=== PATIENT | male | born 1935 | race Caucasian/White ===

== ENCOUNTER 2019-11-27 23:32 | Inpatient (IN) ==
[2019-11-28 00:13] LABS: Basophils # 0.1 10*3/uL (0.0-0.2); Basophils % 0.5 % (0.0-0.8); Eosinophils # 0.1 10*3/uL (0.0-0.87); Eosinophils % 0.9 % (0.00-10.9); Hematocrit 31.9 VOL% (42.0-52.0); Hemoglobin 9.8 GM/DL (14.0-18.0); Immature Granulocytes % 0.6 %; Immature Granulocytes Absolute 0.07 #; Lymphocytes # 2.4 10*3/uL (1.4-4.0); Lymphocytes % 18.6 % (21.2-54.2); Mean Corpuscular HGB Conc 30.7 GM/DL (32-36); Mean Corpuscular Volume 86.4 FL (87-102); Mean Platelet Volume 9.2 FL (9.6-12.0); Monocytes % 9.9 % (1.7-12.7); Neutrophils % 69.5 % (38.7-73.9); Platelet Count 363 T/CUMM (130-400); Red Blood Count 3.69 MC/CUMM (3.8-5.5); White Blood Count 12.7 T/CUMM (4-12)
[2019-11-28 00:18] LABS: INR 1.3; PT Patient Result 13.6 SECS (9.8-11.9); Partial Thromboplastin Time 27.1 SECS (23.9-33.8)
[2019-11-28 00:28] LABS: Thyroid Stimulating Hormone 2.04 uIU/ml (0.358-3.74)
[2019-11-28 00:28] LABS: Bacteria,Urine Occasional /HPF (Few); Bilirubin,Urine Negative (Negative); Blood, Urine Negative (Negative); Glucose,Urine (UA) Negative (Negative); Hyaline Casts,Urine 25 /LPF (0-3); Ketones,Urine Negative (Negative); Mucus,Urine Occasional /LPF (Occasional); Nitrite,Urine Negative (Negative); Protein,Urine Negative; RBC,Urine 1 /HPF (0-4); Squamous Epithelial Cell,Urine Occasional /HPF (0-10); Urine Appearance CLEAR (Clear); Urine Specific Gravity 1.023 (1.001-1.035); WBC,Urine 2 /HPF (0-6)
[2019-11-28 00:36] LABS: Alanine Aminotransferase 24 U/L (16-61); Albumin 2.8 G/DL (3.4-5.0); Alkaline Phosphatase 88 U/L (45-117); Aspartate Amino Transferase 22 U/L (0-37); Blood Urea Nitrogen 15 MG/DL (7-18); Calcium 8.8 MG/DL (8.5-10.1); Estimated Glom Filtration Rate 80 ML/MIN; Glucose 128 MG/DL (74-106); Osmolality,Calculated 275.8 MOS/KG (273-304); Total Protein 6.8 G/DL (6.4-8.3); Troponin I 0.079 NG/ML (0.00-0.045)
[2019-11-28 00:36] LABS: Urine Color Yellow (Yellow)
[2019-11-28] MEDS ORDERED: SODIUM CHLORIDE 0.9% 1,000 ML IV STA (00:36)
[2019-11-28] MEDS ORDERED: cefTRIAXone 1,000 MG in SODIUM CHLORIDE 0.9% 100 ML IV STA (00:36)
[2019-11-28] MEDS ORDERED: POTASSIUM CHLORIDE 20 MEQ TABLET PO STA (01:20)
[2019-11-28] MEDS ORDERED: diphenhydrAMINE CAP 25 MG CAPSULE PO PRN (02:04)
[2019-11-28] MEDS ORDERED: guaiFENesin/DM ER 600-30 MG TABLET PO PRN (02:04)
[2019-11-28] MEDS ORDERED: GLUCAGON 1 MG VIAL IM PRN (02:04)
[2019-11-28] MEDS ORDERED: ACETAMINOPHEN 325 MG TABLET PO PRN (02:04)
[2019-11-28] MEDS ORDERED: ONDANSETRON 4 MG/2 ML VIAL IV PRN (02:04)
[2019-11-28] MEDS ORDERED: DEXTROSE 50% 25 GM/50 ML VIAL IV PRN (02:04)
[2019-11-28] MEDS ORDERED: ALUMINUM/MAGNES/SIMETH MAX STR 30 ML UDCUP PO PRN (02:04)
[2019-11-28] MEDS ORDERED: MORPHINE 4 MG/1 ML VIAL IV PRN (02:04)
[2019-11-28] MEDS ORDERED: NICOTINE 21 MG/24 HR PATCH TRANSDERM PRN (02:04)
[2019-11-28 05:00] LABS: Calcium 8.2 MG/DL (8.5-10.1); Osmolality,Calculated 278.5 MOS/KG (273-304)
[2019-11-28] MEDS ORDERED: POTASSIUM CHLORIDE 20 MEQ TABLET PO ONE (05:54)
[2019-11-28] MEDS: POTASSIUM CHLORIDE RIDER 10 MEQ in PREMIX 1 EACH IV PRN ×4 (06:27→14:45)
[2019-11-28] MEDS ORDERED: MAGNESIUM SULF RIDER 2 GM in PREMIX 1 EACH IV PRN (07:04)
[2019-11-28] MEDS: ALBUTEROL/IPRATROPIUM 3 ML NEB RESP TX SCH ×3 (07:17→22:25)
[2019-11-28] MEDS: AZITHROMYCIN INJ 500 MG in SODIUM CHLORIDE 0.9% 250 ML IV SCH (09:49)
[2019-11-28] MEDS: POTASSIUM CHLORIDE 20 MEQ TABLET PO SCH ×2 (09:49→21:13)
[2019-11-28] MEDS: ASPIRIN 325 MG TABLET PO SCH (09:49)
[2019-11-28] MEDS ORDERED: ALBUTEROL/IPRATROPIUM 3 ML NEB RESP TX ONE (12:36)
[2019-11-28] MEDS: methylPREDNISolone SOD SUC 40 MG/1 ML VIAL IV SCH ×2 (14:34→21:15)
[2019-11-28] MEDS: APIXABAN 5 MG TABLET PO SCH ×2 (14:38→21:14)
[2019-11-28] MEDS: FUROSEMIDE 40 MG/4 ML VIAL IV SCH (18:37)
[2019-11-28] MEDS: PANTOPRAZOLE 20 MG TABLET PO SCH (21:14)
[2019-11-28] MEDS: OMEGA 3 ACID ETHYL ESTERS 1 GM CAPSULE PO SCH (21:14)
[2019-11-28] MEDS: carvediloL 3.125 MG TABLET PO SCH (21:14)
[2019-11-29] MEDS: cefTRIAXone 1,000 MG in SYRINGE 1 EACH IV SCH ×2 (00:39→22:39)
[2019-11-29] MEDS: ALBUTEROL/IPRATROPIUM 3 ML NEB RESP TX SCH ×4 (02:57→19:16)
[2019-11-29] MEDS: methylPREDNISolone SOD SUC 40 MG/1 ML VIAL IV SCH ×3 (06:14→21:21)
[2019-11-29] MEDS: AZITHROMYCIN INJ 500 MG in SODIUM CHLORIDE 0.9% 250 ML IV SCH (06:14)
[2019-11-29] MEDS ORDERED: ALBUTEROL/IPRATROPIUM 3 ML NEB RESP TX ONE ×3 (07:00→18:33)
[2019-11-29 07:35] LABS: Basophils % 0.1 % (0.0-0.8); Hematocrit 34.6 VOL% (42.0-52.0); Hemoglobin 10.3 GM/DL (14.0-18.0); Immature Granulocytes % 0.8 %; Lymphocytes # 1.8 10*3/uL (1.4-4.0); Lymphocytes % 13.9 % (21.2-54.2); Mean Corpuscular HGB Conc 29.8 GM/DL (32-36); Mean Corpuscular Volume 89.9 FL (87-102); Mean Platelet Volume 9.6 FL (9.6-12.0); Monocytes % 6.3 % (1.7-12.7); Neutrophils % 78.9 % (38.7-73.9); Platelet Count 393 T/CUMM (130-400); Red Blood Count 3.85 MC/CUMM (3.8-5.5); Red Cell Distribution Width 17.2 % (9.3-17.3); White Blood Count 13.1 T/CUMM (4-12)
[2019-11-29 07:41] LABS: Calcium 9.1 MG/DL (8.5-10.1); Osmolality,Calculated 280.7 MOS/KG (273-304)
[2019-11-29] MEDS ORDERED: lisinopriL 20 MG TABLET PO SCH (09:00)
[2019-11-29] MEDS ORDERED: FUROSEMIDE 40 MG TABLET PO SCH (09:00)
[2019-11-29] MEDS: FUROSEMIDE 40 MG/4 ML VIAL IV SCH ×2 (09:48→15:44)
[2019-11-29] MEDS: FEBUXOSTAT 80 MG TABLET PO SCH (09:48)
[2019-11-29] MEDS: MULTIVITAMIN (CENTRUM) TABLET PO SCH (09:49)
[2019-11-29] MEDS: carvediloL 3.125 MG TABLET PO SCH ×2 (09:49→21:21)
[2019-11-29] MEDS: OMEGA 3 ACID ETHYL ESTERS 1 GM CAPSULE PO SCH ×2 (09:49→21:21)
[2019-11-29] MEDS: FLUTICASONE 50 MCG NASAL SPRAY 16 GM BOTTLE BOTH NARES SCH (09:50)
[2019-11-29] MEDS: LEVOTHYROXINE 50 MCG TABLET PO SCH (09:50)
[2019-11-29] MEDS: FERROUS SULFATE 325 MG TABLET PO SCH (09:50)
[2019-11-29] MEDS: CETIRIZINE 10 MG TABLET PO SCH (09:50)
[2019-11-29] MEDS: ASPIRIN 325 MG TABLET PO SCH (09:50)
[2019-11-29] MEDS: PANTOPRAZOLE 20 MG TABLET PO SCH ×2 (09:50→21:21)
[2019-11-29] MEDS: APIXABAN 5 MG TABLET PO SCH ×2 (09:50→21:21)
[2019-11-29] MEDS: hydrALAZINE 25 MG TABLET PO SCH (21:21)
[2019-11-30] MEDS: ALBUTEROL/IPRATROPIUM 3 ML NEB RESP TX SCH ×3 (01:46→19:13)
[2019-11-30] MEDS: methylPREDNISolone SOD SUC 40 MG/1 ML VIAL IV SCH ×3 (06:25→21:10)
[2019-11-30] MEDS: AZITHROMYCIN INJ 500 MG in SODIUM CHLORIDE 0.9% 250 ML IV SCH (06:26)
[2019-11-30 07:41] LABS: Basophils % 0.1 % (0.0-0.8); Hematocrit 34.1 VOL% (42.0-52.0); Hemoglobin 10.2 GM/DL (14.0-18.0); Immature Granulocytes % 0.6 %; Immature Granulocytes Absolute 0.08 #; Lymphocytes # 1.4 10*3/uL (1.4-4.0); Lymphocytes % 10.9 % (21.2-54.2); Mean Corpuscular HGB Conc 29.9 GM/DL (32-36); Mean Corpuscular Volume 89.7 FL (87-102); Mean Platelet Volume 9.6 FL (9.6-12.0); Monocytes % 6.3 % (1.7-12.7); NRBC # 0.03 10*3/uL; Neutrophils % 82.1 % (38.7-73.9); Platelet Count 371 T/CUMM (130-400); Red Cell Distribution Width 17.6 % (9.3-17.3); White Blood Count 12.9 T/CUMM (4-12)
[2019-11-30 08:00] LABS: Albumin 2.7 G/DL (3.4-5.0); Bilirubin,Total 0.5 MG/DL (0.2-1.0); Calcium 8.9 MG/DL (8.5-10.1); Osmolality,Calculated 289.5 MOS/KG (273-304); Total Protein 6.6 G/DL (6.4-8.3)
[2019-11-30] MEDS: FUROSEMIDE 40 MG/4 ML VIAL IV SCH ×2 (10:04→15:11)
[2019-11-30] MEDS: FEBUXOSTAT 80 MG TABLET PO SCH (10:09)
[2019-11-30] MEDS: FERROUS SULFATE 325 MG TABLET PO SCH (10:09)
[2019-11-30] MEDS: LEVOTHYROXINE 50 MCG TABLET PO SCH (10:09)
[2019-11-30] MEDS: carvediloL 3.125 MG TABLET PO SCH ×2 (10:10→21:10)
[2019-11-30] MEDS: APIXABAN 5 MG TABLET PO SCH ×2 (10:10→21:10)
[2019-11-30] MEDS: OMEGA 3 ACID ETHYL ESTERS 1 GM CAPSULE PO SCH ×2 (10:10→21:10)
[2019-11-30] MEDS: MULTIVITAMIN (CENTRUM) TABLET PO SCH (10:10)
[2019-11-30] MEDS: PANTOPRAZOLE 20 MG TABLET PO SCH ×2 (10:10→21:10)
[2019-11-30] MEDS: CETIRIZINE 10 MG TABLET PO SCH (10:10)
[2019-11-30] MEDS: hydrALAZINE 25 MG TABLET PO SCH ×2 (10:10→21:10)
[2019-11-30] MEDS: FLUTICASONE 50 MCG NASAL SPRAY 16 GM BOTTLE BOTH NARES SCH (10:11)
[2019-11-30] MEDS: ASPIRIN 325 MG TABLET PO SCH (10:53)
[2019-12-01] MEDS: ALBUTEROL/IPRATROPIUM 3 ML NEB RESP TX SCH ×6 (00:23→19:28)
[2019-12-01] MEDS: cefTRIAXone 1,000 MG in SYRINGE 1 EACH IV SCH (00:36)
[2019-12-01 05:56] LABS: Basophils % 0.1 % (0.0-0.8); Hematocrit 33.7 VOL% (42.0-52.0); Hemoglobin 9.9 GM/DL (14.0-18.0); Immature Granulocytes % 0.6 %; Immature Granulocytes Absolute 0.08 #; Lymphocytes # 0.8 10*3/uL (1.4-4.0); Lymphocytes % 6.6 % (21.2-54.2); Mean Corpuscular HGB Conc 29.4 GM/DL (32-36); Mean Platelet Volume 9.8 FL (9.6-12.0); Monocytes % 4.7 % (1.7-12.7); NRBC # 0.06 10*3/uL; Platelet Count 377 T/CUMM (130-400); Red Blood Count 3.83 MC/CUMM (3.8-5.5); Red Cell Distribution Width 17.3 % (9.3-17.3); White Blood Count 12.4 T/CUMM (4-12)
[2019-12-01] MEDS: methylPREDNISolone SOD SUC 40 MG/1 ML VIAL IV SCH ×2 (05:59→13:34)
[2019-12-01] MEDS: AZITHROMYCIN INJ 500 MG in SODIUM CHLORIDE 0.9% 250 ML IV SCH (06:00)
[2019-12-01 06:24] LABS: Calcium 8.7 MG/DL (8.5-10.1); Osmolality,Calculated 291.7 MOS/KG (273-304)
[2019-12-01 06:35] LABS: Albumin 2.8 G/DL (3.4-5.0); Bilirubin,Total 1.1 MG/DL (0.2-1.0); Calcium 9.1 MG/DL (8.5-10.1); Osmolality,Calculated 287.8 MOS/KG (273-304); Total Protein 6.6 G/DL (6.4-8.3)
[2019-12-01] MEDS: FUROSEMIDE 40 MG/4 ML VIAL IV SCH (08:17)
[2019-12-01] MEDS: MULTIVITAMIN (CENTRUM) TABLET PO SCH (09:08)
[2019-12-01] MEDS: carvediloL 3.125 MG TABLET PO SCH ×2 (09:09→22:30)
[2019-12-01] MEDS: OMEGA 3 ACID ETHYL ESTERS 1 GM CAPSULE PO SCH ×2 (09:09→22:25)
[2019-12-01] MEDS: CETIRIZINE 10 MG TABLET PO SCH (09:09)
[2019-12-01] MEDS: LEVOTHYROXINE 50 MCG TABLET PO SCH (09:09)
[2019-12-01] MEDS: PANTOPRAZOLE 20 MG TABLET PO SCH ×2 (09:10→22:26)
[2019-12-01] MEDS: APIXABAN 5 MG TABLET PO SCH ×2 (09:10→22:26)
[2019-12-01] MEDS: hydrALAZINE 25 MG TABLET PO SCH ×2 (09:10→22:25)
[2019-12-01] MEDS: FERROUS SULFATE 325 MG TABLET PO SCH (09:10)
[2019-12-01] MEDS: FEBUXOSTAT 80 MG TABLET PO SCH (09:11)
[2019-12-01] MEDS: FLUTICASONE 50 MCG NASAL SPRAY 16 GM BOTTLE BOTH NARES SCH (09:12)
[2019-12-01] MEDS: FUROSEMIDE 40 MG TABLET PO SCH (15:30)
[2019-12-02] MEDS: ALBUTEROL/IPRATROPIUM 3 ML NEB RESP TX SCH ×4 (00:10→19:52)
[2019-12-02] MEDS: cefTRIAXone 1,000 MG in SYRINGE 1 EACH IV SCH ×3 (01:49→22:34)
[2019-12-02] MEDS: methylPREDNISolone SOD SUC 40 MG/1 ML VIAL IV SCH (01:51)
[2019-12-02 05:48] LABS: Hemoglobin 10.1 GM/DL (14.0-18.0); Immature Granulocytes % 1.1 %; Immature Granulocytes Absolute 0.09 #; Lymphocytes # 0.5 10*3/uL (1.4-4.0); Lymphocytes % 5.9 % (21.2-54.2); Mean Corpuscular HGB Conc 30.6 GM/DL (32-36); Mean Corpuscular Volume 87.1 FL (87-102); Mean Platelet Volume 9.9 FL (9.6-12.0); Monocytes % 6.5 % (1.7-12.7); NRBC # 0.09 10*3/uL; Neutrophils % 86.5 % (38.7-73.9); Platelet Count 322 T/CUMM (130-400); Red Blood Count 3.79 MC/CUMM (3.8-5.5); Red Cell Distribution Width 17.2 % (9.3-17.3); White Blood Count 8.3 T/CUMM (4-12)
[2019-12-02 06:06] LABS: Calcium 8.9 MG/DL (8.5-10.1); Osmolality,Calculated 288.8 MOS/KG (273-304)
[2019-12-02 06:12] LABS: Albumin 2.8 G/DL (3.4-5.0); Bilirubin,Total 1.1 MG/DL (0.2-1.0); Calcium 8.8 MG/DL (8.5-10.1); Osmolality,Calculated 291.7 MOS/KG (273-304); Total Protein 6.4 G/DL (6.4-8.3)
[2019-12-02] MEDS ORDERED: POTASSIUM CHLORIDE RIDER 10 MEQ in PREMIX 1 EACH IV PRN (08:08)
[2019-12-02] MEDS ORDERED: MAGNESIUM SULF RIDER 2 GM in PREMIX 1 EACH IV PRN (08:08)
[2019-12-02] MEDS: OMEGA 3 ACID ETHYL ESTERS 1 GM CAPSULE PO SCH ×2 (08:47→20:35)
[2019-12-02] MEDS: hydrALAZINE 25 MG TABLET PO SCH ×2 (08:48→20:36)
[2019-12-02] MEDS: FERROUS SULFATE 325 MG TABLET PO SCH (08:48)
[2019-12-02] MEDS: FEBUXOSTAT 80 MG TABLET PO SCH (08:48)
[2019-12-02] MEDS: APIXABAN 5 MG TABLET PO SCH ×2 (08:49→20:35)
[2019-12-02] MEDS: carvediloL 3.125 MG TABLET PO SCH ×2 (08:49→20:36)
[2019-12-02] MEDS: LEVOTHYROXINE 50 MCG TABLET PO SCH (08:49)
[2019-12-02] MEDS: MULTIVITAMIN (CENTRUM) TABLET PO SCH (08:49)
[2019-12-02] MEDS: PANTOPRAZOLE 20 MG TABLET PO SCH ×2 (08:49→20:35)
[2019-12-02] MEDS: FUROSEMIDE 40 MG TABLET PO SCH ×2 (08:50→15:07)
[2019-12-02] MEDS: CETIRIZINE 10 MG TABLET PO SCH (08:50)
[2019-12-02] MEDS: POTASSIUM CHLORIDE 20 MEQ TABLET PO PRN (08:53)
[2019-12-02] MEDS: FLUTICASONE 50 MCG NASAL SPRAY 16 GM BOTTLE BOTH NARES SCH (09:52)
[2019-12-02] MEDS: POLYETHYLENE GLYCOL POWDER 17 GM PACK PO SCH (12:22)
[2019-12-03] MEDS: ALBUTEROL/IPRATROPIUM 3 ML NEB RESP TX SCH ×4 (01:10→19:43)
[2019-12-03] MEDS ORDERED: DIAZEPAM 5 MG TABLET PO ONE (06:00)
[2019-12-03] MEDS ORDERED: diphenhydrAMINE CAP 25 MG CAPSULE PO ONE (06:00)
[2019-12-03 06:35] LABS: Basophils % 0.1 % (0.0-0.8); Hematocrit 34.8 VOL% (42.0-52.0); Hemoglobin 10.5 GM/DL (14.0-18.0); Immature Granulocytes % 0.7 %; Immature Granulocytes Absolute 0.07 #; Lymphocytes # 0.8 10*3/uL (1.4-4.0); Lymphocytes % 7.7 % (21.2-54.2); Mean Corpuscular HGB Conc 30.2 GM/DL (32-36); Mean Corpuscular Volume 89.9 FL (87-102); Mean Platelet Volume 9.8 FL (9.6-12.0); Monocytes % 9.7 % (1.7-12.7); NRBC # 0.07 10*3/uL; Neutrophils % 81.8 % (38.7-73.9); Platelet Count 336 T/CUMM (130-400); Red Blood Count 3.87 MC/CUMM (3.8-5.5); Red Cell Distribution Width 17.9 % (9.3-17.3)
[2019-12-03 06:51] LABS: Albumin 2.9 G/DL (3.4-5.0); Bilirubin,Total 1.3 MG/DL (0.2-1.0); Osmolality,Calculated 286.8 MOS/KG (273-304); Total Protein 6.5 G/DL (6.4-8.3)
[2019-12-03] MEDS: APIXABAN 5 MG TABLET PO SCH ×2 (10:18→21:38)
[2019-12-03] MEDS: FUROSEMIDE 40 MG TABLET PO SCH ×2 (10:18→17:05)
[2019-12-03] MEDS: PANTOPRAZOLE 20 MG TABLET PO SCH ×2 (10:18→21:38)
[2019-12-03] MEDS: carvediloL 3.125 MG TABLET PO SCH ×2 (10:18→21:38)
[2019-12-03] MEDS: predniSONE 20 MG TABLET PO SCH (10:18)
[2019-12-03] MEDS: MULTIVITAMIN (CENTRUM) TABLET PO SCH (10:19)
[2019-12-03] MEDS: OMEGA 3 ACID ETHYL ESTERS 1 GM CAPSULE PO SCH ×2 (10:19→21:38)
[2019-12-03] MEDS: hydrALAZINE 25 MG TABLET PO SCH ×2 (10:19→21:38)
[2019-12-03] MEDS: POLYETHYLENE GLYCOL POWDER 17 GM PACK PO SCH (10:19)
[2019-12-03] MEDS: FLUTICASONE 50 MCG NASAL SPRAY 16 GM BOTTLE BOTH NARES SCH (10:19)
[2019-12-03] MEDS: FERROUS SULFATE 325 MG TABLET PO SCH (10:19)
[2019-12-03] MEDS: LEVOTHYROXINE 50 MCG TABLET PO SCH (10:20)
[2019-12-03] MEDS: CETIRIZINE 10 MG TABLET PO SCH (10:20)
[2019-12-03] MEDS: FEBUXOSTAT 80 MG TABLET PO SCH (10:20)
[2019-12-03] MEDS: SODIUM CHLORIDE 0.45% 1,000 ML IV SCH ×2 (10:25→15:02)
[2019-12-03] MEDS ORDERED: HEPARIN/NACL 0.9% 2 UNITS/ML 1,000 ML IV ONE (10:39)
[2019-12-03] MEDS ORDERED: LIDOCAINE 1% 20 ML VIAL ONE (10:39)
[2019-12-03] MEDS ORDERED: HYDROmorphone 2 MG/1 ML VIAL ONE (12:45)
[2019-12-03] MEDS ORDERED: MIDAZOLAM 2 MG/2 ML VIAL ONE (12:45)
[2019-12-03] MEDS ORDERED: ZALEPLON 5 MG CAPSULE PO PRN (14:09)
[2019-12-04] MEDS: cefTRIAXone 1,000 MG in SYRINGE 1 EACH IV SCH ×2 (00:07→22:30)
[2019-12-04] MEDS: SODIUM CHLORIDE 0.45% 1,000 ML IV SCH ×4 (00:08→21:40)
[2019-12-04] MEDS: ALBUTEROL/IPRATROPIUM 3 ML NEB RESP TX SCH ×4 (01:36→19:10)
[2019-12-04 05:42] LABS: Basophils % 0.1 % (0.0-0.8); Eosinophils % 0.1 % (0.00-10.9); Hematocrit 34.2 VOL% (42.0-52.0); Hemoglobin 10.3 GM/DL (14.0-18.0); Immature Granulocytes % 0.6 %; Immature Granulocytes Absolute 0.06 #; Lymphocytes # 0.9 10*3/uL (1.4-4.0); Lymphocytes % 8.5 % (21.2-54.2); Mean Corpuscular HGB Conc 30.1 GM/DL (32-36); Mean Corpuscular Volume 89.3 FL (87-102); Mean Platelet Volume 9.9 FL (9.6-12.0); Monocytes % 8.7 % (1.7-12.7); NRBC # 0.02 10*3/uL; Platelet Count 354 T/CUMM (130-400); Red Blood Count 3.83 MC/CUMM (3.8-5.5); Red Cell Distribution Width 17.8 % (9.3-17.3); White Blood Count 10.4 T/CUMM (4-12)
[2019-12-04 06:01] LABS: Calcium 8.7 MG/DL (8.5-10.1); Osmolality,Calculated 280.1 MOS/KG (273-304); Osmolality,Calculated 283.8 MOS/KG (273-304)
[2019-12-04 06:03] LABS: Albumin 2.9 G/DL (3.4-5.0); Bilirubin,Total 0.8 MG/DL (0.2-1.0); Calcium 8.7 MG/DL (8.5-10.1); Osmolality,Calculated 280.1 MOS/KG (273-304); Total Protein 6.3 G/DL (6.4-8.3)
[2019-12-04] MEDS: FERROUS SULFATE 325 MG TABLET PO SCH (09:28)
[2019-12-04] MEDS: predniSONE 20 MG TABLET PO SCH (09:28)
[2019-12-04] MEDS: APIXABAN 5 MG TABLET PO SCH (09:28)
[2019-12-04] MEDS: hydrALAZINE 25 MG TABLET PO SCH ×2 (09:28→21:37)
[2019-12-04] MEDS: OMEGA 3 ACID ETHYL ESTERS 1 GM CAPSULE PO SCH ×2 (09:28→21:37)
[2019-12-04] MEDS: CETIRIZINE 10 MG TABLET PO SCH (09:28)
[2019-12-04] MEDS: FUROSEMIDE 40 MG TABLET PO SCH ×2 (09:29→16:37)
[2019-12-04] MEDS: carvediloL 3.125 MG TABLET PO SCH ×2 (09:29→21:37)
[2019-12-04] MEDS: FEBUXOSTAT 80 MG TABLET PO SCH (09:29)
[2019-12-04] MEDS: MULTIVITAMIN (CENTRUM) TABLET PO SCH (09:29)
[2019-12-04] MEDS: LEVOTHYROXINE 50 MCG TABLET PO SCH (09:29)
[2019-12-04] MEDS: PANTOPRAZOLE 20 MG TABLET PO SCH ×2 (09:30→21:37)
[2019-12-04] MEDS: POLYETHYLENE GLYCOL POWDER 17 GM PACK PO SCH (09:30)
[2019-12-04] MEDS: FLUTICASONE 50 MCG NASAL SPRAY 16 GM BOTTLE BOTH NARES SCH (09:30)
[2019-12-04] MEDS: POTASSIUM CHLORIDE 20 MEQ TABLET PO PRN (09:30)
[2019-12-04] MEDS ORDERED: ENOXAPARIN 80 MG/0.8 ML SYRINGE SUBCUT SCH ×2 (12:00→16:00)
[2019-12-05] MEDS: ALBUTEROL/IPRATROPIUM 3 ML NEB RESP TX SCH ×4 (02:06→20:44)
[2019-12-05 04:51] LABS: Basophils % 0.1 % (0.0-0.8); Eosinophils % 0.2 % (0.00-10.9); Hematocrit 34.2 VOL% (42.0-52.0); Hemoglobin 10.2 GM/DL (14.0-18.0); Immature Granulocytes % 0.7 %; Immature Granulocytes Absolute 0.08 #; Lymphocytes # 0.9 10*3/uL (1.4-4.0); Lymphocytes % 7.5 % (21.2-54.2); Mean Corpuscular HGB Conc 29.8 GM/DL (32-36); Mean Corpuscular Volume 90.5 FL (87-102); Mean Platelet Volume 9.8 FL (9.6-12.0); Monocytes % 6.8 % (1.7-12.7); Neutrophils % 84.7 % (38.7-73.9); Platelet Count 371 T/CUMM (130-400); Red Blood Count 3.78 MC/CUMM (3.8-5.5); Red Cell Distribution Width 17.9 % (9.3-17.3); White Blood Count 11.7 T/CUMM (4-12)
[2019-12-05 05:15] LABS: Calcium 8.7 MG/DL (8.5-10.1); Osmolality,Calculated 277.1 MOS/KG (273-304); Total Protein 6.4 G/DL (6.4-8.3)
[2019-12-05] MEDS: SODIUM CHLORIDE 0.45% 1,000 ML IV SCH ×2 (05:36→14:34)
[2019-12-05] MEDS: FEBUXOSTAT 80 MG TABLET PO SCH (09:00)
[2019-12-05] MEDS: OMEGA 3 ACID ETHYL ESTERS 1 GM CAPSULE PO SCH ×2 (09:00→20:32)
[2019-12-05] MEDS: FUROSEMIDE 40 MG TABLET PO SCH ×2 (09:01→15:34)
[2019-12-05] MEDS: MULTIVITAMIN (CENTRUM) TABLET PO SCH (09:01)
[2019-12-05] MEDS: carvediloL 3.125 MG TABLET PO SCH ×2 (09:01→20:32)
[2019-12-05] MEDS: LEVOTHYROXINE 50 MCG TABLET PO SCH (09:01)
[2019-12-05] MEDS: FERROUS SULFATE 325 MG TABLET PO SCH (09:01)
[2019-12-05] MEDS: PANTOPRAZOLE 20 MG TABLET PO SCH ×2 (09:02→20:32)
[2019-12-05] MEDS: CETIRIZINE 10 MG TABLET PO SCH (09:02)
[2019-12-05] MEDS: hydrALAZINE 25 MG TABLET PO SCH ×2 (09:02→20:32)
[2019-12-05] MEDS: predniSONE 20 MG TABLET PO SCH (09:02)
[2019-12-05] MEDS: FLUTICASONE 50 MCG NASAL SPRAY 16 GM BOTTLE BOTH NARES SCH (09:03)
[2019-12-05] MEDS: POLYETHYLENE GLYCOL POWDER 17 GM PACK PO SCH (09:03)
[2019-12-06] MEDS: ALBUTEROL/IPRATROPIUM 3 ML NEB RESP TX SCH ×4 (01:35→19:15)
[2019-12-06 05:11] LABS: Calcium 8.7 MG/DL (8.5-10.1); Osmolality,Calculated 273.2 MOS/KG (273-304)
[2019-12-06] MEDS: SODIUM CHLORIDE 0.45% 1,000 ML IV SCH ×2 (07:06→07:07)
[2019-12-06] MEDS ORDERED: ALBUTEROL 2.5 MG/3 ML NEB RESP TX PRN (08:39)
[2019-12-06] MEDS: OMEGA 3 ACID ETHYL ESTERS 1 GM CAPSULE PO SCH ×2 (08:41→21:07)
[2019-12-06] MEDS: FEBUXOSTAT 80 MG TABLET PO SCH (08:41)
[2019-12-06] MEDS: hydrALAZINE 25 MG TABLET PO SCH (08:42)
[2019-12-06] MEDS: carvediloL 3.125 MG TABLET PO SCH (08:42)
[2019-12-06] MEDS: CETIRIZINE 10 MG TABLET PO SCH (08:42)
[2019-12-06] MEDS: FERROUS SULFATE 325 MG TABLET PO SCH (08:42)
[2019-12-06] MEDS: FUROSEMIDE 40 MG TABLET PO SCH ×2 (08:43→15:31)
[2019-12-06] MEDS: predniSONE 10 MG TABLET PO SCH (08:43)
[2019-12-06] MEDS: MULTIVITAMIN (CENTRUM) TABLET PO SCH (08:43)
[2019-12-06] MEDS: PANTOPRAZOLE 20 MG TABLET PO SCH ×2 (08:43→21:07)
[2019-12-06] MEDS: LEVOTHYROXINE 50 MCG TABLET PO SCH (08:44)
[2019-12-06] MEDS: POLYETHYLENE GLYCOL POWDER 17 GM PACK PO SCH (08:45)
[2019-12-06] MEDS: FLUTICASONE 50 MCG NASAL SPRAY 16 GM BOTTLE BOTH NARES SCH (08:46)
[2019-12-06] MEDS: POTASSIUM CHLORIDE 20 MEQ TABLET PO PRN ×2 (08:50→14:03)
[2019-12-06 13:07] LABS: ABG Base Excess 6.7 MMOL/L (-2.5-2.5); ABG HCO3 30.5 MMOL/L (20-26); ABG PCO2 34.5 MM HG (35-48); ABG PH 7.538 (7.35-7.45); ABG TCO2 26.1 MMOL/L (23-27)
[2019-12-07] MEDS: ALBUTEROL/IPRATROPIUM 3 ML NEB RESP TX SCH ×4 (00:49→19:11)
[2019-12-07] MEDS: carvediloL 3.125 MG TABLET PO SCH ×3 (01:36→21:42)
[2019-12-07] MEDS ORDERED: ENOXAPARIN 80 MG/0.8 ML SYRINGE SUBCUT ONE (02:12)
[2019-12-07] MEDS: hydrALAZINE 25 MG TABLET PO SCH ×2 (02:38→09:32)
[2019-12-07 03:11] LABS: Albumin 3.6 G/DL (3.4-5.0); Bilirubin,Total 1.4 MG/DL (0.2-1.0); Calcium 9.5 MG/DL (8.5-10.1); Osmolality,Calculated 271.5 MOS/KG (273-304); Total Protein 7.8 G/DL (6.4-8.3)
[2019-12-07 03:17] LABS: Basophils % 0.2 % (0.0-0.8); Eosinophils # 0.2 10*3/uL (0.0-0.87); Hemoglobin 13.4 GM/DL (14.0-18.0); Immature Granulocytes % 1.2 %; Immature Granulocytes Absolute 0.21 #; Lymphocytes # 0.6 10*3/uL (1.4-4.0); Lymphocytes % 3.2 % (21.2-54.2); Mean Corpuscular HGB Conc 30.5 GM/DL (32-36); Mean Corpuscular Volume 89.1 FL (87-102); Mean Platelet Volume 10.3 FL (9.6-12.0); Monocytes % 4.2 % (1.7-12.7); Neutrophils % 90.2 % (38.7-73.9); Platelet Count 318 T/CUMM (130-400); Red Blood Count 4.94 MC/CUMM (3.8-5.5); Red Cell Distribution Width 18.4 % (9.3-17.3); White Blood Count 17.2 T/CUMM (4-12)
[2019-12-07] MEDS: PIPERACILLIN/TAZOBACTAM 3,375 MG in SODIUM CHLORIDE 0.9% 100 ML IV SCH ×3 (04:51→21:43)
[2019-12-07 06:11] LABS: Basophils % 0.2 % (0.0-0.8); Eosinophils # 0.1 10*3/uL (0.0-0.87); Eosinophils % 0.7 % (0.00-10.9); Hematocrit 40.7 VOL% (42.0-52.0); Hemoglobin 12.7 GM/DL (14.0-18.0); Immature Granulocytes % 0.8 %; Immature Granulocytes Absolute 0.11 #; Lymphocytes # 0.5 10*3/uL (1.4-4.0); Lymphocytes % 3.6 % (21.2-54.2); Mean Corpuscular HGB Conc 31.2 GM/DL (32-36); Mean Corpuscular Volume 87.2 FL (87-102); Mean Platelet Volume 10.2 FL (9.6-12.0); Monocytes % 4.6 % (1.7-12.7); Neutrophils % 90.1 % (38.7-73.9); Platelet Count 337 T/CUMM (130-400); Red Blood Count 4.67 MC/CUMM (3.8-5.5); Red Cell Distribution Width 18.4 % (9.3-17.3); White Blood Count 13.2 T/CUMM (4-12)
[2019-12-07 06:27] LABS: Calcium 9.3 MG/DL (8.5-10.1); Osmolality,Calculated 273.2 MOS/KG (273-304)
[2019-12-07 06:32] LABS: Albumin 3.2 G/DL (3.4-5.0); Bilirubin,Total 1.5 MG/DL (0.2-1.0); Osmolality,Calculated 273.2 MOS/KG (273-304); Total Protein 6.7 G/DL (6.4-8.3)
[2019-12-07 06:45] LABS: Lymphocytes 3 % (20-55); Platelet Estimate Normal; Segmented Neutrophils 95 % (50-85); Total Cells Counted 100
[2019-12-07 06:46] LABS: Hypochromasia Slight; Microcytosis Slight; Polychromasia Few
[2019-12-07 06:47] LABS: Ovalocytes Few
[2019-12-07] MEDS ORDERED: SODIUM CHLORIDE 0.9% 1,000 ML IV SCH (07:30)
[2019-12-07 08:01] LABS: Bilirubin,Urine Negative (Negative); Blood, Urine Small mg/dL (Negative); Glucose,Urine (UA) Negative (Negative); Hyaline Casts,Urine 1 /LPF (0-3); Ketones,Urine Negative (Negative); Mucus,Urine Occasional /LPF (Occasional); Nitrite,Urine Negative (Negative); Protein,Urine Negative; Urine Appearance CLEAR (Clear); Urine Color Yellow (Yellow); Urine Specific Gravity 1.014 (1.001-1.035); Urine Urobilinogen < 2.0 EU/DL (0.2-1.0); WBC,Urine 1 /HPF (0-6)
[2019-12-07] MEDS ORDERED: ENOXAPARIN 80 MG/0.8 ML SYRINGE SUBCUT SCH (09:00)
[2019-12-07] MEDS ORDERED: CHLORHEXIDINE 4% SOLN 118 ML BOTTLE TOP SCH (09:00)
[2019-12-07 09:02] LABS: ABG Base Excess 6.3 MMOL/L (-2.5-2.5); ABG HCO3 30.1 MMOL/L (20-26); ABG Oxygen Saturation 97.3 % (95-100); ABG PCO2 39.5 MM HG (35-48); ABG PH 7.489 (7.35-7.45); ABG PO2 87.9 MM HG (80-95); ABG TCO2 26.5 MMOL/L (23-27)
[2019-12-07] MEDS: OMEGA 3 ACID ETHYL ESTERS 1 GM CAPSULE PO SCH ×2 (09:23→21:42)
[2019-12-07] MEDS: FEBUXOSTAT 80 MG TABLET PO SCH (09:25)
[2019-12-07] MEDS: FERROUS SULFATE 325 MG TABLET PO SCH (09:25)
[2019-12-07] MEDS: FUROSEMIDE 40 MG TABLET PO SCH ×2 (09:26→16:30)
[2019-12-07] MEDS: predniSONE 10 MG TABLET PO SCH (09:27)
[2019-12-07] MEDS: LEVOTHYROXINE 50 MCG TABLET PO SCH (09:28)
[2019-12-07] MEDS: MULTIVITAMIN (CENTRUM) TABLET PO SCH (09:28)
[2019-12-07] MEDS: PANTOPRAZOLE 20 MG TABLET PO SCH ×2 (09:28→21:42)
[2019-12-07] MEDS: CETIRIZINE 10 MG TABLET PO SCH (09:28)
[2019-12-07] MEDS: FLUTICASONE 50 MCG NASAL SPRAY 16 GM BOTTLE BOTH NARES SCH (09:30)
[2019-12-07] MEDS: CHLORHEXIDINE 0.12% ORAL RINSE 60 ML BOTTLE SWISH/SPIT SCH ×2 (09:30→21:44)
[2019-12-07] MEDS: POLYETHYLENE GLYCOL POWDER 17 GM PACK PO SCH (09:32)
[2019-12-07 11:54] LABS: Band Neutrophils 3 % (0-10); Hypochromasia 2+; Lymphocytes 4 % (20-55); Ovalocytes Few; Platelet Estimate Normal; Polychromasia Slight; Segmented Neutrophils 88 % (50-85); Target Cells Few; Total Cells Counted 100
[2019-12-07] MEDS: CHLORHEXIDINE 4% SOLN 118 ML BOTTLE TOP SCH (14:25)
[2019-12-08] MEDS: ALBUTEROL/IPRATROPIUM 3 ML NEB RESP TX SCH ×2 (00:13→07:00)
[2019-12-08] MEDS: CHLORHEXIDINE 4% SOLN 118 ML BOTTLE TOP SCH ×3 (00:58→09:00)
[2019-12-08] MEDS: hydrALAZINE 25 MG TABLET PO SCH ×2 (00:58→09:00)
[2019-12-08] MEDS: PIPERACILLIN/TAZOBACTAM 3,375 MG in SODIUM CHLORIDE 0.9% 100 ML IV SCH ×3 (03:39→17:45)
[2019-12-08] MEDS ORDERED: PAPAVERINE 60 MG/2 ML VIAL ONE (04:24)
[2019-12-08] MEDS ORDERED: VANCOMYCIN 500 MG VIAL ONE (04:25)
[2019-12-08] MEDS ORDERED: VANCOMYCIN 1,000 MG VIAL ONE (04:25)
[2019-12-08] MEDS ORDERED: CEFUROXIME INJ 1,500 MG in SYRINGE 1 EACH IV ONE (05:00)
[2019-12-08] MEDS ORDERED: LIDOCAINE 2% 5 ML VIAL ONE ×2 (05:35→13:00)
[2019-12-08] MEDS ORDERED: HEPARIN/NACL 0.9% 2 UNITS/ML 500 ML IV ONE (05:35)
[2019-12-08] MEDS ORDERED: CALCIUM CHLORIDE 1,000 MG/10 ML VIAL IV ONE ×2 (05:35→14:20)
[2019-12-08] MEDS ORDERED: SUFentanil 250 MCG/5 ML AMP ONE (05:35)
[2019-12-08] MEDS ORDERED: LACTATED RINGERS 1,000 ML IV ONE (05:36)
[2019-12-08] MEDS ORDERED: PHENYLEPHRINE 10 MG/1 ML VIAL IV ONE (05:36)
[2019-12-08] MEDS ORDERED: ePHEDrine 50 MG/ML VIAL ONE (05:36)
[2019-12-08] MEDS ORDERED: AMINOCAPROIC ACID 5,000 MG/20 ML VIAL ONE (05:36)
[2019-12-08] MEDS ORDERED: NITROGLYCERIN DRIP 50 MG/250 ML BOTTLE IV ONE (05:36)
[2019-12-08] MEDS ORDERED: SODIUM CHLORIDE 0.9% 1,000 ML IV ONE ×2 (05:36→14:21)
[2019-12-08] MEDS ORDERED: MIDAZOLAM 10 MG/2 ML VIAL ONE (05:36)
[2019-12-08] MEDS ORDERED: ETOMIDATE 40 MG/20 ML VIAL IV ONE (05:36)
[2019-12-08] MEDS ORDERED: VECURONIUM 10 MG VIAL IV ONE (05:37)
[2019-12-08] MEDS: carvediloL 3.125 MG TABLET PO SCH ×2 (05:59→09:00)
[2019-12-08 06:11] LABS: Basophils % 0.1 % (0.0-0.8); Eosinophils # 0.1 10*3/uL (0.0-0.87); Eosinophils % 0.9 % (0.00-10.9); Hematocrit 40.8 VOL% (42.0-52.0); Hemoglobin 12.5 GM/DL (14.0-18.0); Immature Granulocytes % 0.6 %; Immature Granulocytes Absolute 0.07 #; Lymphocytes # 0.8 10*3/uL (1.4-4.0); Lymphocytes % 6.9 % (21.2-54.2); Mean Corpuscular HGB Conc 30.6 GM/DL (32-36); Mean Corpuscular Volume 87.2 FL (87-102); Mean Platelet Volume 9.7 FL (9.6-12.0); Monocytes % 5.8 % (1.7-12.7); Neutrophils % 85.7 % (38.7-73.9); Platelet Count 282 T/CUMM (130-400); Red Blood Count 4.68 MC/CUMM (3.8-5.5); Red Cell Distribution Width 18.2 % (9.3-17.3); White Blood Count 10.9 T/CUMM (4-12)
[2019-12-08 06:26] LABS: Calcium 8.7 MG/DL (8.5-10.1)
[2019-12-08 07:38] LABS: ABG Base Excess 3.9 MMOL/L (-2.5-2.5); ABG PCO2 35.9 MM HG (35-48); ABG PH 7.488 (7.35-7.45); ABG TCO2 24.3 MMOL/L (23-27); Glucose Heart Surgery 91 MG/DL (74-106); Hematocrit Heart Surgery 34.1 PERCENT (42-52); Hemoglobin Heart Surgery 11.1 G/DL (14.0-18.0); Ionized Calcium Arterial 1.12 MMOL/L (1.21-1.46); PCO2 Patient Temp Arterial 35.9 MMHG; PH Patient Temp Arterial 7.488; Patient Temperature 37 CELCIUS; Potassium Heart/CVR 3.1 MMOL/L (3.5-5.1); Sodium Heart/CVR 137 MMOL/L (135-145)
[2019-12-08 07:57] LABS: Amorphous Crystals,Urine Occasional /HPF (Few); Bilirubin,Urine Negative (Negative); Blood, Urine Small mg/dL (Negative); Glucose,Urine (UA) Negative (Negative); Ketones,Urine Negative (Negative); Nitrite,Urine Negative (Negative); Protein,Urine 30 MG/DL; RBC,Urine <1 /HPF (0-4); Urine Appearance CLEAR (Clear); Urine Color Yellow (Yellow); Urine Urobilinogen < 2.0 EU/DL (0.2-1.0); WBC,Urine <1 /HPF (0-6)
[2019-12-08] MEDS: FUROSEMIDE 40 MG TABLET PO SCH (08:00)
[2019-12-08 08:55] LABS: Hematocrit Heart Surgery 25.1 PERCENT (42-52); Hemoglobin Heart Surgery 8.1 G/DL (14.0-18.0); PCO2 Patient Temp Venous 30.6 MM HG; PH Patient Temp Venous 7.551; PO2 Patient Temp Venous 36.3 MM HG; Potassium Heart/CVR 3.1 MMOL/L (3.5-5.1); VBG Base Excess 4.7 MEQ/L (0-4); VBG HCO3 28.4 MEQ/L (24-28); VBG Oxygen Saturation 78.5 %; VBG PCO2 33.8 MMHG (41-51); VBG PH 7.521; VBG PO2 41.8 MMHG (17-40)
[2019-12-08] MEDS: FLUTICASONE 50 MCG NASAL SPRAY 16 GM BOTTLE BOTH NARES SCH (09:00)
[2019-12-08] MEDS: OMEGA 3 ACID ETHYL ESTERS 1 GM CAPSULE PO SCH (09:00)
[2019-12-08] MEDS: POLYETHYLENE GLYCOL POWDER 17 GM PACK PO SCH (09:00)
[2019-12-08] MEDS: MULTIVITAMIN (CENTRUM) TABLET PO SCH (09:00)
[2019-12-08] MEDS: FEBUXOSTAT 80 MG TABLET PO SCH (09:00)
[2019-12-08] MEDS: CHLORHEXIDINE 0.12% ORAL RINSE 60 ML BOTTLE SWISH/SPIT SCH ×2 (09:00→20:31)
[2019-12-08] MEDS: CETIRIZINE 10 MG TABLET PO SCH (09:00)
[2019-12-08] MEDS: FERROUS SULFATE 325 MG TABLET PO SCH (09:00)
[2019-12-08] MEDS: LEVOTHYROXINE 50 MCG TABLET PO SCH (09:00)
[2019-12-08] MEDS: predniSONE 10 MG TABLET PO SCH (09:00)
[2019-12-08] MEDS: PANTOPRAZOLE 20 MG TABLET PO SCH (09:00)
[2019-12-08] MEDS ORDERED: NITROPRUSSIDE 50 MG/2 ML VIAL ONE (09:08)
[2019-12-08] MEDS ORDERED: SODIUM BICARBONATE 50 MEQ/50 ML VIAL IV ONE ×6 (09:08→16:21)
[2019-12-08] MEDS ORDERED: POTASSIUM CHLORIDE RIDER 100 ML IV ONE (09:08)
[2019-12-08] MEDS ORDERED: CALCIUM CHLORIDE 1,000 MG/10 ML SYRINGE IV ONE (09:09)
[2019-12-08] MEDS ORDERED: PHENYLEPHRINE DRIP 40 MG/250 ML PREMIX IV ONE (09:09)
[2019-12-08 09:25] LABS: Hematocrit Heart Surgery 24.9 PERCENT (42-52); PH Patient Temp Venous 7.596; PO2 Patient Temp Venous 36.9 MM HG; Potassium Heart/CVR 3.3 MMOL/L (3.5-5.1); VBG Base Excess 4.9 MEQ/L (0-4); VBG HCO3 28.6 MEQ/L (24-28); VBG Oxygen Saturation 84.2 %; VBG PCO2 31.2 MMHG (41-51); VBG PH 7.549; VBG PO2 45.4 MMHG (17-40)
[2019-12-08 09:56] LABS: Hematocrit Heart Surgery 26.5 PERCENT (42-52); Hemoglobin Heart Surgery 8.5 G/DL (14.0-18.0); PCO2 Patient Temp Venous 25.9 MM HG; PH Patient Temp Venous 7.602; PO2 Patient Temp Venous 34.7 MM HG; Potassium Heart/CVR 3.3 MMOL/L (3.5-5.1); VBG Base Excess 4.4 MEQ/L (0-4); VBG HCO3 28.1 MEQ/L (24-28); VBG Oxygen Saturation 81.6 %; VBG PH 7.555; VBG PO2 42.8 MMHG (17-40)
[2019-12-08 10:26] LABS: Hematocrit Heart Surgery 25.3 PERCENT (42-52); Hemoglobin Heart Surgery 8.1 G/DL (14.0-18.0); PCO2 Patient Temp Venous 25.6 MM HG; PH Patient Temp Venous 7.585; PO2 Patient Temp Venous 38.7 MM HG; VBG HCO3 26.9 MEQ/L (24-28); VBG Oxygen Saturation 86.3 %; VBG PCO2 29.6 MMHG (41-51); VBG PH 7.538; VBG PO2 47.6 MMHG (17-40)
[2019-12-08 10:59] LABS: Hematocrit Heart Surgery 23.6 PERCENT (42-52); Hemoglobin Heart Surgery 7.6 G/DL (14.0-18.0); PCO2 Patient Temp Venous 30.1 MM HG; PH Patient Temp Venous 7.55; Potassium Heart/CVR 4.5 MMOL/L (3.5-5.1); VBG Base Excess 4.1 MEQ/L (0-4); VBG HCO3 27.6 MEQ/L (24-28); VBG Oxygen Saturation 63.8 %; VBG PCO2 30.1 MMHG (41-51); VBG PH 7.55
[2019-12-08] MEDS ORDERED: THROMBIN TOPICAL (RECOMBINANT) 5,000 UNIT VIAL TOP ONE (11:36)
[2019-12-08 11:37] LABS: Hemoglobin Heart Surgery 7.7 G/DL (14.0-18.0); PCO2 Patient Temp Venous 33.5 MM HG; PH Patient Temp Venous 7.489; PO2 Patient Temp Venous 35.2 MM HG; VBG Base Excess 2.2 MEQ/L (0-4); VBG HCO3 26.1 MEQ/L (24-28); VBG Oxygen Saturation 69.4 %; VBG PCO2 33.5 MMHG (41-51); VBG PH 7.489; VBG PO2 35.2 MMHG (17-40)
[2019-12-08 12:10] LABS: Hematocrit Heart Surgery 22.5 PERCENT (42-52); Hemoglobin Heart Surgery 7.2 G/DL (14.0-18.0); PCO2 Patient Temp Venous 30.5 MM HG; PH Patient Temp Venous 7.512; PO2 Patient Temp Venous 28.8 MM HG; VBG Base Excess 1.7 MEQ/L (0-4); VBG HCO3 25.4 MEQ/L (24-28); VBG Oxygen Saturation 55.8 %; VBG PCO2 30.5 MMHG (41-51); VBG PH 7.512; VBG PO2 28.8 MMHG (17-40)
[2019-12-08 12:41] LABS: ABG Base Excess -3.8 MMOL/L (-2.5-2.5); ABG HCO3 18.9 MMOL/L (20-26); ABG Oxygen Saturation 99.1 % (95-100); ABG PCO2 25.7 MM HG (35-48); ABG PH 7.484 (7.35-7.45); ABG PO2 446.3 MM HG (80-95); ABG TCO2 19.7 MMOL/L (23-27); Glucose Heart Surgery 308 MG/DL (74-106); Hemoglobin Heart Surgery 8.3 G/DL (14.0-18.0); Ionized Calcium Arterial 0.72 MMOL/L (1.21-1.46); PCO2 Patient Temp Arterial 25.7 MMHG; PH Patient Temp Arterial 7.484; PO2 Patient Temp Arterial 446.3 MM HG; Patient Temperature 37 CELCIUS; Potassium Heart/CVR 3.9 MMOL/L (3.5-5.1); Sodium Heart/CVR 130 MMOL/L (135-145)
[2019-12-08] MEDS ORDERED: VECURONIUM 10 MG VIAL IV PRN ×2 (12:44)
[2019-12-08] MEDS ORDERED: INSULIN REGULAR 100 UNIT/ML IV ONE (12:44)
[2019-12-08] MEDS ORDERED: DEXTROSE 50% 25 GM/50 ML VIAL IV PRN (12:44)
[2019-12-08] MEDS ORDERED: ONDANSETRON 4 MG/2 ML VIAL IV PRN (12:44)
[2019-12-08] MEDS ORDERED: POTASSIUM CHLORIDE RIDER 10 MEQ in PREMIX 1 EACH IV PRN (12:44)
[2019-12-08] MEDS ORDERED: MAGNESIUM SULF RIDER 4 GM in PREMIX 1 EACH IV PRN (12:44)
[2019-12-08] MEDS ORDERED: MORPHINE 10 MG/1 ML VIAL IV PRN (12:44)
[2019-12-08] MEDS ORDERED: INSULIN REGULAR 100 UNIT/ML IV PRN (12:44)
[2019-12-08] MEDS ORDERED: PHENYLEPHRINE DRIP 40 MG/250 ML PREMIX IV PRN (12:44)
[2019-12-08] MEDS ORDERED: MIDAZOLAM 10 MG/2 ML VIAL IV PRN (12:44)
[2019-12-08] MEDS ORDERED: NITROPRUSSIDE 100 MG in DEXTROSE 5% 250 ML IV PRN (12:44)
[2019-12-08] MEDS ORDERED: CHLORHEXIDINE 4% SOLN 118 ML BOTTLE TOP PRN (12:44)
[2019-12-08] MEDS ORDERED: MIDAZOLAM 2 MG/2 ML VIAL IV PRN (12:44)
[2019-12-08] MEDS ORDERED: MAGNESIUM SULF RIDER 2 GM in PREMIX 1 EACH IV PRN (12:44)
[2019-12-08] MEDS ORDERED: INSULIN REGULAR DRIP 100 ML IV SCH (12:44)
[2019-12-08] MEDS ORDERED: CALCIUM CHLORIDE 1,000 MG/10 ML SYRINGE IV PRN (12:44)
[2019-12-08] MEDS ORDERED: ACETAMINOPHEN 650 MG SUPP RECTAL PRN (12:44)
[2019-12-08] MEDS ORDERED: MANNITOL 100 GM/500 ML BAG IV ONE (13:00)
[2019-12-08] MEDS ORDERED: MAGNESIUM SULFATE 5 GM/10 ML VIAL IV ONE (13:01)
[2019-12-08] MEDS ORDERED: ALBUMIN 25% 25 GM/100 ML VIAL IV ONE (13:01)
[2019-12-08] MEDS ORDERED: HEPARIN 10,000 UNIT/10 ML VIAL ONE (13:01)
[2019-12-08] MEDS ORDERED: methylPREDNISolone SOD SUC 1,000 MG/8 ML VIAL ONE (13:01)
[2019-12-08] MEDS ORDERED: PROTAMINE SULFATE 50 MG/5 ML VIAL IV ONE (13:01)
[2019-12-08] MEDS ORDERED: DEXTROSE 5% KCL 20 MEQ 20 MEQ/1,000 ML BAG IV ONE (13:01)
[2019-12-08] MEDS ORDERED: PROTAMINE SULFATE 250 MG/25 ML VIAL IV ONE (13:01)
[2019-12-08] MEDS ORDERED: FUROSEMIDE 20 MG/2 ML VIAL ONE (13:01)
[2019-12-08] MEDS ORDERED: POTASSIUM CHLORIDE 20 MEQ/10 ML VIAL ONE (13:01)
[2019-12-08 13:15] LABS: ABG Base Excess 0.8 MMOL/L (-2.5-2.5); ABG HCO3 25.2 MMOL/L (20-26); ABG PCO2 38.9 MM HG (35-48); ABG TCO2 23.6 MMOL/L (23-27); Glucose Heart Surgery 287 MG/DL (74-106); Hematocrit Heart Surgery 23.5 PERCENT (42-52); Hemoglobin Heart Surgery 7.5 G/DL (14.0-18.0); Ionized Calcium Arterial 1.31 MMOL/L (1.21-1.46); PCO2 Patient Temp Arterial 38.9 MMHG; Patient Temperature 37 CELCIUS; Potassium Heart/CVR 4.2 MMOL/L (3.5-5.1); Sodium Heart/CVR 140 MMOL/L (135-145)
[2019-12-08] MEDS: SODIUM CHLORIDE 0.45% 1,000 ML IV SCH ×2 (14:15)
[2019-12-08] MEDS ORDERED: EPINEPHrine 1 MG/ML VIAL ONE (14:21)
[2019-12-08] MEDS ORDERED: SEVOFLURANE 1 UNIT/15 MINUTE INH ONE (14:21)
[2019-12-08] MEDS ORDERED: FAMOTIDINE 20 MG/2 ML VIAL IV ONE (14:21)
[2019-12-08] MEDS ORDERED: diphenhydrAMINE 50 MG/1 ML VIAL ONE (14:21)
[2019-12-08 14:30] LABS: ABG Base Excess -1.3 MMOL/L (-2.5-2.5); ABG HCO3 23.4 MMOL/L (20-26); ABG Oxygen Saturation 99.7 % (95-100); ABG PCO2 37.4 MM HG (35-48); Glucose Heart Surgery 271 MG/DL (74-106); Hematocrit Heart Surgery 32.2 PERCENT (42-52); Hemoglobin Heart Surgery 10.4 G/DL (14.0-18.0)
[2019-12-08 14:38] LABS: Basophils # 0.1 10*3/uL (0.0-0.2); Basophils % 0.2 % (0.0-0.8); Eosinophils % 0.2 % (0.00-10.9); Hematocrit 33.6 VOL% (42.0-52.0); Hemoglobin 10.4 GM/DL (14.0-18.0); Immature Granulocytes Absolute 0.75 #; Lymphocytes # 1.8 10*3/uL (1.4-4.0); Lymphocytes % 7.2 % (21.2-54.2); Mean Corpuscular Volume 90.6 FL (87-102); Mean Platelet Volume 10.6 FL (9.6-12.0); Monocytes % 6.8 % (1.7-12.7); Neutrophils % 82.6 % (38.7-73.9); Platelet Count 184 T/CUMM (130-400); Red Blood Count 3.71 MC/CUMM (3.8-5.5); Red Cell Distribution Width 17.8 % (9.3-17.3); White Blood Count 24.9 T/CUMM (4-12)
[2019-12-08] MEDS: POTASSIUM CHLORIDE RIDER 20 MEQ in PREMIX 1 EACH IV PRN ×4 (14:45→23:12)
[2019-12-08] MEDS: DOBUTamine 500 MG/250 ML PREMIX IV PRN (14:45)
[2019-12-08 14:53] LABS: CKMB % 11.3 %
[2019-12-08 14:55] LABS: Troponin I 18.2 NG/ML (0.00-0.045)
[2019-12-08 14:56] LABS: INR 1.5; PT Patient Result 15.6 SECS (9.8-11.9); Partial Thromboplastin Time 27.1 SECS (23.9-33.8)
[2019-12-08 15:00] LABS: Albumin 2.3 G/DL (3.4-5.0); Calcium 9.9 MG/DL (8.5-10.1); Osmolality,Calculated 292.4 MOS/KG (273-304); Total Protein 4.7 G/DL (6.4-8.3)
[2019-12-08] MEDS: ALBUMIN 5% 12.5 GM in PREMIX 1 EACH IV PRN ×4 (15:32→21:25)
[2019-12-08 15:42] LABS: ABG HCO3 18.7 MMOL/L (20-26); ABG PCO2 37.9 MM HG (35-48); ABG PH 7.303 (7.35-7.45); ABG TCO2 17.4 MMOL/L (23-27); Glucose Heart Surgery 248 MG/DL (74-106); Hemoglobin Heart Surgery 9.3 G/DL (14.0-18.0); Potassium Heart/CVR 4.1 MMOL/L (3.5-5.1)
[2019-12-08 15:45] LABS: VBG Base Excess -5.5 MEQ/L (0-4); VBG Oxygen Saturation 40.2 %; VBG PCO2 50.6 MMHG (41-51); VBG PH 7.246; VBG PO2 28.8 MMHG (17-40)
[2019-12-08] MEDS ORDERED: PHENYLEPHRINE INJ 160 MG in SODIUM CHLORIDE 0.9% 234 ML IV PRN (15:53)
[2019-12-08] MEDS ORDERED: FUROSEMIDE 40 MG/4 ML VIAL IV ONE (16:24)
[2019-12-08] MEDS ORDERED: FUROSEMIDE 40 MG/4 ML VIAL ONE (16:26)
[2019-12-08 16:37] LABS: Band Neutrophils 1 % (0-10); Lymphocytes 5 % (20-55); Platelet Estimate Adequate; Segmented Neutrophils 87 % (50-85); Total Cells Counted 100
[2019-12-08 16:50] LABS: ABG Base Excess -7.3 MMOL/L (-2.5-2.5); ABG HCO3 18.5 MMOL/L (20-26); ABG Oxygen Saturation 99.7 % (95-100); ABG PCO2 39.7 MM HG (35-48); ABG PH 7.285 (7.35-7.45); ABG TCO2 17.5 MMOL/L (23-27); Glucose Heart Surgery 228 MG/DL (74-106); Hematocrit Heart Surgery 29.9 PERCENT (42-52); Hemoglobin Heart Surgery 9.7 G/DL (14.0-18.0); Potassium Heart/CVR 4.8 MMOL/L (3.5-5.1)
[2019-12-08] MEDS ORDERED: SODIUM BICARBONATE 50 MEQ/50 ML VIAL IV PRN (16:58)
[2019-12-08 17:43] LABS: ABG Base Excess -1.4 MMOL/L (-2.5-2.5); ABG HCO3 23.3 MMOL/L (20-26); ABG PCO2 41.7 MM HG (35-48); ABG PH 7.366 (7.35-7.45); ABG TCO2 21.9 MMOL/L (23-27); Glucose Heart Surgery 211 MG/DL (74-106); Hematocrit Heart Surgery 30.1 PERCENT (42-52); Hemoglobin Heart Surgery 9.7 G/DL (14.0-18.0)
[2019-12-08 19:04] LABS: ABG Base Excess -1.2 MMOL/L (-2.5-2.5); ABG HCO3 23.5 MMOL/L (20-26); ABG PCO2 37.6 MM HG (35-48); ABG PH 7.401 (7.35-7.45); ABG TCO2 21.2 MMOL/L (23-27); Glucose Heart Surgery 199 MG/DL (74-106); Hematocrit Heart Surgery 31.4 PERCENT (42-52); Hemoglobin Heart Surgery 10.2 G/DL (14.0-18.0); Potassium Heart/CVR 3.9 MMOL/L (3.5-5.1)
[2019-12-08] MEDS: LACTATED RINGERS 250 ML IV PRN ×4 (20:31→22:44)
[2019-12-08 21:07] LABS: ABG Base Excess 0.3 MMOL/L (-2.5-2.5); ABG HCO3 24.7 MMOL/L (20-26); ABG PCO2 37.8 MM HG (35-48); ABG PH 7.421 (7.35-7.45); ABG TCO2 22.5 MMOL/L (23-27); Glucose Heart Surgery 154 MG/DL (74-106); Hematocrit Heart Surgery 28.9 PERCENT (42-52); Hemoglobin Heart Surgery 9.3 G/DL (14.0-18.0); Potassium Heart/CVR 3.9 MMOL/L (3.5-5.1)
[2019-12-08 22:26] LABS: CKMB % 11.9 %
[2019-12-08 23:03] LABS: ABG Base Excess 3.3 MMOL/L (-2.5-2.5); ABG HCO3 27.4 MMOL/L (20-26); ABG Oxygen Saturation 99.7 % (95-100); ABG PCO2 37.2 MM HG (35-48); ABG PH 7.469 (7.35-7.45); ABG TCO2 24.6 MMOL/L (23-27); Glucose Heart Surgery 121 MG/DL (74-106); Hematocrit Heart Surgery 29.5 PERCENT (42-52); Hemoglobin Heart Surgery 9.5 G/DL (14.0-18.0); Potassium Heart/CVR 3.8 MMOL/L (3.5-5.1)
[2019-12-08] MEDS ORDERED: HALOPERIDOL 5 MG/ML AMP IM ONE (23:47)
[2019-12-09] MEDS: LACTATED RINGERS 250 ML IV PRN ×6 (00:41→16:15)
[2019-12-09] MEDS: PIPERACILLIN/TAZOBACTAM 3,375 MG in SODIUM CHLORIDE 0.9% 100 ML IV SCH ×3 (01:20→17:20)
[2019-12-09 01:22] LABS: ABG Base Excess 5.4 MMOL/L (-2.5-2.5); ABG HCO3 29.3 MMOL/L (20-26); ABG PCO2 37.3 MM HG (35-48); ABG PH 7.497 (7.35-7.45); ABG TCO2 26.3 MMOL/L (23-27); Glucose Heart Surgery 105 MG/DL (74-106); Hematocrit Heart Surgery 29.3 PERCENT (42-52); Hemoglobin Heart Surgery 9.5 G/DL (14.0-18.0); Potassium Heart/CVR 4.4 MMOL/L (3.5-5.1)
[2019-12-09 03:44] LABS: ABG Base Excess 5.5 MMOL/L (-2.5-2.5); ABG HCO3 29.4 MMOL/L (20-26); ABG PCO2 32.6 MM HG (35-48); ABG PH 7.541 (7.35-7.45); ABG TCO2 25.4 MMOL/L (23-27); Glucose Heart Surgery 152 MG/DL (74-106); Hematocrit Heart Surgery 30.3 PERCENT (42-52); Hemoglobin Heart Surgery 9.8 G/DL (14.0-18.0); Potassium Heart/CVR 4.4 MMOL/L (3.5-5.1)
[2019-12-09 03:45] LABS: Basophils % 0.2 % (0.0-0.8); Hematocrit 28.5 VOL% (42.0-52.0); Hemoglobin 9.7 GM/DL (14.0-18.0); Immature Granulocytes % 0.7 %; Immature Granulocytes Absolute 0.12 #; Lymphocytes # 1.5 10*3/uL (1.4-4.0); Lymphocytes % 9.1 % (21.2-54.2); Mean Corpuscular Volume 82.1 FL (87-102); Mean Platelet Volume 11.3 FL (9.6-12.0); Monocytes % 7.1 % (1.7-12.7); Neutrophils % 82.9 % (38.7-73.9); Platelet Count 87 T/CUMM (130-400); Red Blood Count 3.47 MC/CUMM (3.8-5.5); White Blood Count 16.6 T/CUMM (4-12)
[2019-12-09] MEDS: ALBUMIN 5% 12.5 GM in PREMIX 1 EACH IV PRN ×3 (03:58→22:47)
[2019-12-09 04:06] LABS: CKMB % 11.6 %
[2019-12-09 04:08] LABS: Troponin I 10.4 NG/ML (0.00-0.045)
[2019-12-09 04:18] LABS: Albumin 2.7 G/DL (3.4-5.0); Bilirubin,Direct 1.34 MG/DL (0.0-0.20); Bilirubin,Total 2.5 MG/DL (0.2-1.0); Calcium 8.1 MG/DL (8.5-10.1); Osmolality,Calculated 302.3 MOS/KG (273-304)
[2019-12-09] MEDS: MORPHINE 4 MG/1 ML VIAL IV PRN ×6 (04:21→23:42)
[2019-12-09 04:23] LABS: Band Neutrophils 1 % (0-10); Hypochromasia 1+; Lymphocytes 6 % (20-55); Microcytosis Slight; Platelet Estimate Decreased; Segmented Neutrophils 86 % (50-85); Total Cells Counted 100
[2019-12-09] MEDS ORDERED: CALCIUM GLUCONATE 1,000 MG in SODIUM CHLORIDE 0.9% 100 ML IV ONE (06:14)
[2019-12-09] MEDS: INSULIN REGULAR 100 UNIT/ML SUBCUT SCH ×3 (08:22→17:00)
[2019-12-09] MEDS: PANTOPRAZOLE 40 MG VIAL IV SCH (08:25)
[2019-12-09] MEDS: LEVOTHYROXINE 100 MCG VIAL IV SCH (08:28)
[2019-12-09] MEDS: CHLORHEXIDINE 0.12% ORAL RINSE 60 ML BOTTLE SWISH/SPIT SCH ×2 (09:05→21:47)
[2019-12-09 09:09] LABS: ABG Base Excess 1.5 MMOL/L (-2.5-2.5); ABG HCO3 25.8 MMOL/L (20-26); ABG Oxygen Saturation 99.9 % (95-100); ABG PH 7.492 (7.35-7.45); ABG TCO2 22.5 MMOL/L (23-27); Glucose Heart Surgery 206 MG/DL (74-106); Hematocrit Heart Surgery 27.8 PERCENT (42-52); Hemoglobin Heart Surgery 8.9 G/DL (14.0-18.0); Potassium Heart/CVR 4.3 MMOL/L (3.5-5.1)
[2019-12-09] MEDS ORDERED: PIPERACILLIN/TAZOBACTAM 3,375 MG in SODIUM CHLORIDE 0.9% 100 ML IV ONE (10:00)
[2019-12-09 11:48] LABS: ABG Base Excess 1.2 MMOL/L (-2.5-2.5); ABG HCO3 25.5 MMOL/L (20-26); ABG Oxygen Saturation 99.6 % (95-100); ABG PCO2 32.9 MM HG (35-48); ABG PH 7.477 (7.35-7.45); Glucose Heart Surgery 217 MG/DL (74-106); Potassium Heart/CVR 4.3 MMOL/L (3.5-5.1)
[2019-12-09] MEDS: NITROGLYCERIN DRIP 50 MG/250 ML BOTTLE IV PRN (12:25)
[2019-12-09 14:01] LABS: VBG HCO3 26.3 MEQ/L (24-28); VBG Oxygen Saturation 50.3 %; VBG PCO2 41.9 MMHG (41-51); VBG PH 7.427; VBG PO2 29.3 MMHG (17-40)
[2019-12-09 14:05] LABS: ABG Base Excess 1.9 MMOL/L (-2.5-2.5); ABG HCO3 26.1 MMOL/L (20-26); ABG Oxygen Saturation 99.3 % (95-100); ABG PCO2 35.7 MM HG (35-48); ABG PH 7.462 (7.35-7.45); ABG TCO2 23.2 MMOL/L (23-27); Glucose Heart Surgery 215 MG/DL (74-106); Hematocrit Heart Surgery 29.8 PERCENT (42-52); Hemoglobin Heart Surgery 9.6 G/DL (14.0-18.0); Potassium Heart/CVR 4.2 MMOL/L (3.5-5.1)
[2019-12-09] MEDS: SODIUM CHLORIDE 0.45% 1,000 ML IV SCH ×2 (15:05)
[2019-12-09 15:27] LABS: CKMB % 10.2 %
[2019-12-09 15:32] LABS: Troponin I 5.59 NG/ML (0.00-0.045)
[2019-12-09] MEDS ORDERED: FUROSEMIDE 40 MG/4 ML VIAL IV ONE (17:00)
[2019-12-09] MEDS: LINEZOLID INJ 600 MG in PREMIX 1 EACH IV SCH (17:15)
[2019-12-09 18:14] LABS: ABG Base Excess 2.6 MMOL/L (-2.5-2.5); ABG HCO3 26.7 MMOL/L (20-26); ABG Oxygen Saturation 99.4 % (95-100); ABG TCO2 23.7 MMOL/L (23-27); Glucose Heart Surgery 259 MG/DL (74-106); Hematocrit Heart Surgery 32.1 PERCENT (42-52); Hemoglobin Heart Surgery 10.4 G/DL (14.0-18.0); Potassium Heart/CVR 4.1 MMOL/L (3.5-5.1)
[2019-12-09] MEDS ORDERED: AMIODARONE INJ 50 MG in DEXTROSE 5% 100 ML IV ONE (19:39)
[2019-12-09] MEDS ORDERED: AMIODARONE 150 MG/3 ML VIAL ONE (19:44)
[2019-12-09] MEDS ORDERED: AMIODARONE 450 MG/9 ML VIAL IV ONE (19:44)
[2019-12-09] MEDS ORDERED: INSULIN LISPRO 100 UNIT/ML SUBCUT SCH (20:00)
[2019-12-09] MEDS ORDERED: AMIODARONE INJ 450 MG in DEXTROSE 5% 241 ML IV SCH (20:00)
[2019-12-09 21:40] LABS: ABG Base Excess 4.1 MMOL/L (-2.5-2.5); ABG HCO3 27.6 MMOL/L (20-26); ABG Oxygen Saturation 98.1 % (95-100); ABG PCO2 37.1 MM HG (35-48); ABG PH 7.489 (7.35-7.45); ABG TCO2 28.7 MMOL/L (23-27); Glucose Heart Surgery 269 MG/DL (74-106); Hemoglobin Heart Surgery 10.7 G/DL (14.0-18.0); Potassium Heart/CVR 3.7 MMOL/L (3.5-5.1)
[2019-12-09] MEDS: POTASSIUM CHLORIDE RIDER 20 MEQ in PREMIX 1 EACH IV PRN (21:45)
[2019-12-09] MEDS: INSULIN LISPRO 100 UNIT/ML SUBCUT SCH ×2 (21:51→23:47)
[2019-12-09 23:28] LABS: ABG Base Excess 4.7 MMOL/L (-2.5-2.5); ABG HCO3 28.7 MMOL/L (20-26); ABG Oxygen Saturation 99.3 % (95-100); ABG PCO2 39.1 MM HG (35-48); ABG PH 7.473 (7.35-7.45); ABG TCO2 25.8 MMOL/L (23-27); Glucose Heart Surgery 249 MG/DL (74-106); Hematocrit Heart Surgery 31.4 PERCENT (42-52); Hemoglobin Heart Surgery 10.2 G/DL (14.0-18.0)
[2019-12-10 02:02] LABS: Hematocrit Heart Surgery 29.5 PERCENT (42-52); Hemoglobin Heart Surgery 9.5 G/DL (14.0-18.0); PCO2 Patient Temp Venous 45.7 MM HG; PH Patient Temp Venous 7.433; PO2 Patient Temp Venous 31.3 MM HG; Potassium Heart/CVR 3.7 MMOL/L (3.5-5.1); VBG Base Excess 5.6 MEQ/L (0-4); VBG HCO3 28.8 MEQ/L (24-28); VBG Oxygen Saturation 55.6 %; VBG PCO2 45.7 MMHG (41-51); VBG PH 7.433; VBG PO2 31.3 MMHG (17-40)
[2019-12-10 02:03] LABS: ABG Base Excess 3.9 MMOL/L (-2.5-2.5); ABG HCO3 27.5 MMOL/L (20-26); ABG Oxygen Saturation 98.1 % (95-100); ABG PCO2 37.3 MM HG (35-48); ABG PH 7.485 (7.35-7.45); ABG PO2 137.9 MM HG (80-95); ABG TCO2 28.6 MMOL/L (23-27); Glucose Heart Surgery 218 MG/DL (74-106); Hemoglobin Heart Surgery 9.6 G/DL (14.0-18.0); Potassium Heart/CVR 3.6 MMOL/L (3.5-5.1)
[2019-12-10] MEDS: POTASSIUM CHLORIDE RIDER 20 MEQ in PREMIX 1 EACH IV PRN ×4 (02:18→23:50)
[2019-12-10] MEDS: INSULIN LISPRO 100 UNIT/ML SUBCUT SCH ×9 (02:18→18:17)
[2019-12-10] MEDS: PIPERACILLIN/TAZOBACTAM 3,375 MG in SODIUM CHLORIDE 0.9% 100 ML IV SCH ×3 (02:20→18:08)
[2019-12-10] MEDS: ALBUMIN 5% 12.5 GM in PREMIX 1 EACH IV PRN (03:10)
[2019-12-10] MEDS: MORPHINE 4 MG/1 ML VIAL IV PRN ×3 (03:28→19:45)
[2019-12-10 04:43] LABS: ABG Base Excess 4.6 MMOL/L (-2.5-2.5); ABG HCO3 28.6 MMOL/L (20-26); ABG Oxygen Saturation 99.9 % (95-100); ABG PH 7.472 (7.35-7.45); Glucose Heart Surgery 186 MG/DL (74-106); Hematocrit Heart Surgery 29.3 PERCENT (42-52); Hemoglobin Heart Surgery 9.5 G/DL (14.0-18.0)
[2019-12-10] MEDS: LINEZOLID INJ 600 MG in PREMIX 1 EACH IV SCH ×2 (04:50→18:53)
[2019-12-10 04:55] LABS: Basophils % 0.1 % (0.0-0.8); Hematocrit 27.7 VOL% (42.0-52.0); Hemoglobin 9.4 GM/DL (14.0-18.0); Immature Granulocytes % 1.5 %; Immature Granulocytes Absolute 0.33 #; Lymphocytes # 2.8 10*3/uL (1.4-4.0); Lymphocytes % 12.8 % (21.2-54.2); Mean Corpuscular HGB Conc 33.9 GM/DL (32-36); Mean Corpuscular Volume 86.3 FL (87-102); Mean Platelet Volume 12.3 FL (9.6-12.0); Monocytes % 8.4 % (1.7-12.7); Neutrophils % 77.2 % (38.7-73.9); Red Blood Count 3.21 MC/CUMM (3.8-5.5); Red Cell Distribution Width 16.1 % (9.3-17.3)
[2019-12-10 04:59] LABS: White Blood Count 21.8 T/CUMM (4-12)
[2019-12-10 05:00] LABS: Platelet Count 67 T/CUMM (130-400)
[2019-12-10 05:13] LABS: Hypochromasia 1+; Lymphocytes 8 % (20-55); Microcytosis 1+; Ovalocytes Slight; Platelet Estimate Decreased; Segmented Neutrophils 86 % (50-85); Total Cells Counted 100
[2019-12-10 05:18] LABS: Albumin 2.9 G/DL (3.4-5.0); Bilirubin,Direct 0.92 MG/DL (0.0-0.20); Bilirubin,Total 1.7 MG/DL (0.2-1.0); Osmolality,Calculated 290.4 MOS/KG (273-304); Total Protein 4.6 G/DL (6.4-8.3)
[2019-12-10] MEDS: LEVOTHYROXINE 100 MCG VIAL IV SCH (06:21)
[2019-12-10] MEDS ORDERED: HEPARIN/NACL 0.9% 2 UNITS/ML 500 ML IV ONE (07:23)
[2019-12-10 08:16] LABS: ABG Base Excess 3.6 MMOL/L (-2.5-2.5); ABG HCO3 26.6 MMOL/L (20-26); ABG Oxygen Saturation 98.2 % (95-100); ABG PCO2 34.1 MM HG (35-48); ABG PO2 144.5 MM HG (80-95); ABG TCO2 27.6 MMOL/L (23-27); Glucose Heart Surgery 132 MG/DL (74-106); Hemoglobin Heart Surgery 9.9 G/DL (14.0-18.0); Potassium Heart/CVR 3.5 MMOL/L (3.5-5.1)
[2019-12-10] MEDS: PANTOPRAZOLE 40 MG VIAL IV SCH (08:46)
[2019-12-10] MEDS: CHLORHEXIDINE 0.12% ORAL RINSE 60 ML BOTTLE SWISH/SPIT SCH ×2 (08:46→21:46)
[2019-12-10] MEDS: INSULIN GLARGINE 100 UNIT/ML SUBCUT SCH ×2 (08:46→09:31)
[2019-12-10 10:34] LABS: ABG Base Excess 3.8 MMOL/L (-2.5-2.5); ABG HCO3 27.8 MMOL/L (20-26); ABG Oxygen Saturation 99.6 % (95-100); ABG PCO2 36.7 MM HG (35-48); ABG PH 7.479 (7.35-7.45); ABG TCO2 24.8 MMOL/L (23-27); Glucose Heart Surgery 51 MG/DL (74-106); Hematocrit Heart Surgery 30.4 PERCENT (42-52); Hemoglobin Heart Surgery 9.8 G/DL (14.0-18.0); Potassium Heart/CVR 4.4 MMOL/L (3.5-5.1)
[2019-12-10] MEDS: DEXTROSE 50% 25 GM/50 ML VIAL IV PRN ×5 (10:47→22:31)
[2019-12-10 11:44] LABS: ABG Base Excess 3.2 MMOL/L (-2.5-2.5); ABG HCO3 27.3 MMOL/L (20-26); ABG Oxygen Saturation 99.8 % (95-100); ABG PCO2 36.1 MM HG (35-48); ABG PH 7.477 (7.35-7.45); ABG TCO2 24.3 MMOL/L (23-27); Glucose Heart Surgery 69 MG/DL (74-106); Hematocrit Heart Surgery 30.1 PERCENT (42-52); Hemoglobin Heart Surgery 9.7 G/DL (14.0-18.0); Potassium Heart/CVR 4.2 MMOL/L (3.5-5.1)
[2019-12-10 13:40] LABS: ABG Base Excess 0.5 MMOL/L (-2.5-2.5); ABG HCO3 24.2 MMOL/L (20-26); ABG Oxygen Saturation 96.3 % (95-100); ABG PCO2 35.3 MM HG (35-48); ABG PH 7.454 (7.35-7.45); ABG PO2 88.4 MM HG (80-95); ABG TCO2 25.3 MMOL/L (23-27); Glucose Heart Surgery 56 MG/DL (74-106); Hemoglobin Heart Surgery 10.5 G/DL (14.0-18.0); Potassium Heart/CVR 4.1 MMOL/L (3.5-5.1)
[2019-12-10] MEDS ORDERED: FUROSEMIDE 40 MG/4 ML VIAL IV ONE ×2 (15:04→15:29)
[2019-12-10] MEDS: SODIUM CHLORIDE 0.45% 1,000 ML IV SCH ×2 (15:14→15:15)
[2019-12-10] MEDS: ALBUTEROL/IPRATROPIUM 3 ML NEB RESP TX SCH ×2 (15:20→19:27)
[2019-12-10] MEDS: NITROGLYCERIN DRIP 50 MG/250 ML BOTTLE IV PRN (17:19)
[2019-12-10] MEDS: DOBUTamine 500 MG/250 ML PREMIX IV PRN (17:19)
[2019-12-10 18:00] LABS: ABG HCO3 25.3 MMOL/L (20-26); ABG Oxygen Saturation 98.1 % (95-100); ABG PCO2 39.1 MM HG (35-48); ABG PO2 99.7 MM HG (80-95); ABG TCO2 22.9 MMOL/L (23-27); Glucose Heart Surgery 71 MG/DL (74-106); Hematocrit Heart Surgery 32.9 PERCENT (42-52); Hemoglobin Heart Surgery 10.7 G/DL (14.0-18.0); Potassium Heart/CVR 4.1 MMOL/L (3.5-5.1)
[2019-12-10] MEDS ORDERED: methylPREDNISolone SOD SUC 125 MG/2 ML VIAL IV ONE (18:32)
[2019-12-10] MEDS ORDERED: HYDROCORTISONE 100 MG VIAL ONE (18:35)
[2019-12-10] MEDS: ROSUVASTATIN 20 MG TABLET NG SCH (21:46)
[2019-12-10 23:07] LABS: ABG Base Excess 3.8 MMOL/L (-2.5-2.5); ABG HCO3 27.8 MMOL/L (20-26); ABG Oxygen Saturation 98.5 % (95-100); ABG PCO2 44.4 MM HG (35-48); ABG PH 7.419 (7.35-7.45); ABG TCO2 26.2 MMOL/L (23-27); Glucose Heart Surgery 169 MG/DL (74-106); Hematocrit Heart Surgery 29.9 PERCENT (42-52); Hemoglobin Heart Surgery 9.7 G/DL (14.0-18.0); Potassium Heart/CVR 3.6 MMOL/L (3.5-5.1)
[2019-12-10] MEDS: FUROSEMIDE 40 MG/4 ML VIAL IV SCH (23:15)
[2019-12-11] MEDS ORDERED: methylPREDNISolone SOD SUC 125 MG/2 ML VIAL IV ONE (00:30)
[2019-12-11] MEDS: MORPHINE 4 MG/1 ML VIAL IV PRN ×2 (00:44→22:44)
[2019-12-11] MEDS: ALBUTEROL/IPRATROPIUM 3 ML NEB RESP TX SCH ×4 (00:58→19:32)
[2019-12-11] MEDS: PIPERACILLIN/TAZOBACTAM 3,375 MG in SODIUM CHLORIDE 0.9% 100 ML IV SCH ×2 (00:59→09:27)
[2019-12-11 04:13] LABS: ABG Base Excess 6.5 MMOL/L (-2.5-2.5); ABG HCO3 30.6 MMOL/L (20-26); ABG Oxygen Saturation 97.5 % (95-100); ABG PCO2 41.7 MM HG (35-48); ABG PH 7.483 (7.35-7.45); ABG TCO2 31.8 MMOL/L (23-27); Glucose Heart Surgery 116 MG/DL (74-106); Hemoglobin Heart Surgery 10.1 G/DL (14.0-18.0); Potassium Heart/CVR 3.9 MMOL/L (3.5-5.1)
[2019-12-11 04:26] LABS: Basophils % 0.1 % (0.0-0.8); Hematocrit 28.6 VOL% (42.0-52.0); Hemoglobin 9.7 GM/DL (14.0-18.0); Immature Granulocytes Absolute 0.13 #; Lymphocytes # 1.3 10*3/uL (1.4-4.0); Mean Corpuscular HGB Conc 33.9 GM/DL (32-36); Mean Corpuscular Volume 85.6 FL (87-102); Monocytes % 4.7 % (1.7-12.7); Neutrophils % 84.2 % (38.7-73.9); Platelet Count 44 T/CUMM (130-400); Red Blood Count 3.34 MC/CUMM (3.8-5.5); Red Cell Distribution Width 15.8 % (9.3-17.3); White Blood Count 12.9 T/CUMM (4-12)
[2019-12-11 04:52] LABS: Albumin 2.9 G/DL (3.4-5.0); Bilirubin,Direct 1.02 MG/DL (0.0-0.20); Bilirubin,Total 2.1 MG/DL (0.2-1.0); Calcium 8.2 MG/DL (8.5-10.1); Osmolality,Calculated 284.5 MOS/KG (273-304); Total Protein 5.1 G/DL (6.4-8.3)
[2019-12-11] MEDS: POTASSIUM CHLORIDE RIDER 20 MEQ in PREMIX 1 EACH IV PRN ×3 (05:12→13:25)
[2019-12-11] MEDS: LINEZOLID INJ 600 MG in PREMIX 1 EACH IV SCH (05:14)
[2019-12-11] MEDS: LEVOTHYROXINE 100 MCG VIAL IV SCH (06:42)
[2019-12-11 07:15] LABS: Hypochromasia 1+; Lymphocytes 8 % (20-55); Microcytosis 1+; Ovalocytes Slight; Platelet Estimate Decreased; Segmented Neutrophils 89 % (50-85); Total Cells Counted 100
[2019-12-11] MEDS: FUROSEMIDE 40 MG/4 ML VIAL IV SCH ×3 (07:41→23:28)
[2019-12-11] MEDS: methylPREDNISolone SOD SUC 125 MG/2 ML VIAL IV SCH ×2 (07:46→16:34)
[2019-12-11] MEDS: INSULIN LISPRO 100 UNIT/ML SUBCUT SCH ×4 (09:26→20:12)
[2019-12-11] MEDS: PANTOPRAZOLE 40 MG VIAL IV SCH (09:27)
[2019-12-11] MEDS: CHLORHEXIDINE 0.12% ORAL RINSE 60 ML BOTTLE SWISH/SPIT SCH ×2 (09:27→21:14)
[2019-12-11] MEDS: INSULIN GLARGINE 100 UNIT/ML SUBCUT SCH (09:28)
[2019-12-11] MEDS: SODIUM CHLORIDE 0.45% 1,000 ML IV SCH ×2 (12:37)
[2019-12-11 12:48] LABS: ABG Base Excess 7.5 MMOL/L (-2.5-2.5); ABG HCO3 31.3 MMOL/L (20-26); ABG Oxygen Saturation 98.9 % (95-100); ABG PCO2 41.6 MM HG (35-48); ABG PH 7.488 (7.35-7.45); ABG TCO2 28.8 MMOL/L (23-27); Glucose Heart Surgery 156 MG/DL (74-106); Hematocrit Heart Surgery 29.5 PERCENT (42-52); Hemoglobin Heart Surgery 9.5 G/DL (14.0-18.0); Potassium Heart/CVR 4.2 MMOL/L (3.5-5.1)
[2019-12-11] MEDS: cefTRIAXone 500 MG in SYRINGE 1 EACH IV SCH (16:55)
[2019-12-11] MEDS: DOBUTamine 500 MG/250 ML PREMIX IV PRN (16:56)
[2019-12-11] MEDS: NITROGLYCERIN DRIP 50 MG/250 ML BOTTLE IV PRN (16:57)
[2019-12-11] MEDS: ROSUVASTATIN 20 MG TABLET NG SCH (21:14)
[2019-12-12] MEDS: INSULIN LISPRO 100 UNIT/ML SUBCUT SCH ×6 (00:39→20:24)
[2019-12-12] MEDS: methylPREDNISolone SOD SUC 125 MG/2 ML VIAL IV SCH ×3 (00:43→17:38)
[2019-12-12] MEDS: ALBUTEROL/IPRATROPIUM 3 ML NEB RESP TX SCH ×4 (01:49→19:38)
[2019-12-12] MEDS: cefTRIAXone 500 MG in SYRINGE 1 EACH IV SCH ×2 (04:22→17:41)
[2019-12-12 04:59] LABS: Basophils % 0.1 % (0.0-0.8); Hematocrit 28.8 VOL% (42.0-52.0); Hemoglobin 9.3 GM/DL (14.0-18.0); Immature Granulocytes % 0.8 %; Immature Granulocytes Absolute 0.11 #; Lymphocytes # 0.3 10*3/uL (1.4-4.0); Lymphocytes % 2.2 % (21.2-54.2); Mean Corpuscular HGB Conc 32.3 GM/DL (32-36); Mean Corpuscular Volume 89.4 FL (87-102); Mean Platelet Volume 11.4 FL (9.6-12.0); Monocytes % 3.3 % (1.7-12.7); Neutrophils % 93.6 % (38.7-73.9); Red Blood Count 3.22 MC/CUMM (3.8-5.5); Red Cell Distribution Width 15.3 % (9.3-17.3)
[2019-12-12 05:11] LABS: Platelet Count 57 T/CUMM (130-400)
[2019-12-12 05:17] LABS: Calcium 8.1 MG/DL (8.5-10.1); Osmolality,Calculated 290.4 MOS/KG (273-304)
[2019-12-12 05:28] LABS: Lymphocytes 4 % (20-55); Segmented Neutrophils 96 % (50-85); Total Cells Counted 100
[2019-12-12 05:29] LABS: Hypochromasia 1+; Microcytosis 1+; Platelet Estimate Decreased
[2019-12-12] MEDS: POTASSIUM CHLORIDE RIDER 20 MEQ in PREMIX 1 EACH IV PRN ×2 (05:39→06:19)
[2019-12-12] MEDS: LEVOTHYROXINE 100 MCG VIAL IV SCH (06:17)
[2019-12-12] MEDS: FUROSEMIDE 40 MG/4 ML VIAL IV SCH (09:00)
[2019-12-12] MEDS: carvediloL 3.125 MG TABLET PO SCH ×2 (09:08→20:38)
[2019-12-12] MEDS: INSULIN GLARGINE 100 UNIT/ML SUBCUT SCH (09:08)
[2019-12-12] MEDS: CHLORHEXIDINE 0.12% ORAL RINSE 60 ML BOTTLE SWISH/SPIT SCH ×2 (09:11→20:38)
[2019-12-12] MEDS: PANTOPRAZOLE 40 MG VIAL IV SCH (09:13)
[2019-12-12] MEDS: lisinopriL 2.5 MG TABLET PO SCH ×2 (09:25→21:25)
[2019-12-12] MEDS: SODIUM CHLORIDE 0.45% 1,000 ML IV SCH ×2 (13:46)
[2019-12-12] MEDS: ROSUVASTATIN 20 MG TABLET NG SCH (20:38)
[2019-12-12] MEDS ORDERED: MORPHINE 4 MG/1 ML VIAL IV ONE (22:25)
[2019-12-13] MEDS: INSULIN LISPRO 100 UNIT/ML SUBCUT SCH ×7 (00:24→20:37)
[2019-12-13] MEDS: methylPREDNISolone SOD SUC 125 MG/2 ML VIAL IV SCH ×3 (00:41→16:50)
[2019-12-13] MEDS: ALBUTEROL/IPRATROPIUM 3 ML NEB RESP TX SCH ×4 (02:36→19:31)
[2019-12-13] MEDS: cefTRIAXone 500 MG in SYRINGE 1 EACH IV SCH ×2 (04:23→16:50)
[2019-12-13 04:42] LABS: Basophils % 0.1 % (0.0-0.8); Hematocrit 27.9 VOL% (42.0-52.0); Hemoglobin 9.2 GM/DL (14.0-18.0); Immature Granulocytes % 0.7 %; Immature Granulocytes Absolute 0.07 #; Lymphocytes # 0.2 10*3/uL (1.4-4.0); Mean Corpuscular Volume 87.7 FL (87-102); Mean Platelet Volume 10.7 FL (9.6-12.0); Monocytes % 3.4 % (1.7-12.7); Neutrophils % 93.8 % (38.7-73.9); Platelet Count 51 T/CUMM (130-400); Red Blood Count 3.18 MC/CUMM (3.8-5.5); Red Cell Distribution Width 15.2 % (9.3-17.3); White Blood Count 9.3 T/CUMM (4-12)
[2019-12-13 05:01] LABS: Calcium 8.1 MG/DL (8.5-10.1); Osmolality,Calculated 290.5 MOS/KG (273-304)
[2019-12-13 05:13] LABS: Platelet Estimate Decreased; Segmented Neutrophils 100 % (50-85); Total Cells Counted 100
[2019-12-13 05:14] LABS: Hypochromasia Slight
[2019-12-13] MEDS: POTASSIUM CHLORIDE RIDER 20 MEQ in PREMIX 1 EACH IV PRN ×2 (05:42→06:18)
[2019-12-13] MEDS: LEVOTHYROXINE 100 MCG VIAL IV SCH (06:15)
[2019-12-13] MEDS: carvediloL 3.125 MG TABLET PO SCH ×2 (08:22→21:35)
[2019-12-13] MEDS: FUROSEMIDE 40 MG/4 ML VIAL IV SCH (08:40)
[2019-12-13] MEDS: PANTOPRAZOLE 40 MG VIAL IV SCH (08:50)
[2019-12-13] MEDS: INSULIN GLARGINE 100 UNIT/ML SUBCUT SCH (09:01)
[2019-12-13] MEDS: ASPIRIN EC 81 MG TABLET PO SCH (09:04)
[2019-12-13] MEDS: lisinopriL 2.5 MG TABLET PO SCH ×2 (09:05→21:35)
[2019-12-13] MEDS: CHLORHEXIDINE 0.12% ORAL RINSE 60 ML BOTTLE SWISH/SPIT SCH ×2 (09:06→21:36)
[2019-12-13] MEDS: SODIUM CHLORIDE 0.45% 1,000 ML IV SCH (12:11)
[2019-12-13] MEDS: ROSUVASTATIN 20 MG TABLET NG SCH (21:35)
[2019-12-14] MEDS: INSULIN LISPRO 100 UNIT/ML SUBCUT SCH ×6 (00:15→21:07)
[2019-12-14] MEDS: methylPREDNISolone SOD SUC 125 MG/2 ML VIAL IV SCH ×3 (00:30→17:21)
[2019-12-14] MEDS: ALBUTEROL/IPRATROPIUM 3 ML NEB RESP TX SCH ×4 (01:20→20:04)
[2019-12-14] MEDS: cefTRIAXone 500 MG in SYRINGE 1 EACH IV SCH ×2 (04:36→17:20)
[2019-12-14 04:54] LABS: Hemoglobin 9.3 GM/DL (14.0-18.0); Immature Granulocytes % 0.6 %; Immature Granulocytes Absolute 0.07 #; Lymphocytes # 0.2 10*3/uL (1.4-4.0); Lymphocytes % 2.1 % (21.2-54.2); Mean Corpuscular HGB Conc 33.2 GM/DL (32-36); Mean Corpuscular Volume 87.8 FL (87-102); Mean Platelet Volume 9.9 FL (9.6-12.0); Monocytes % 3.3 % (1.7-12.7); Platelet Count 59 T/CUMM (130-400); Red Blood Count 3.19 MC/CUMM (3.8-5.5); Red Cell Distribution Width 15.1 % (9.3-17.3); White Blood Count 10.9 T/CUMM (4-12)
[2019-12-14 05:11] LABS: Hypochromasia 1+; Lymphocytes 3 % (20-55); Microcytosis 1+; Platelet Estimate Decreased; Segmented Neutrophils 93 % (50-85); Total Cells Counted 100
[2019-12-14 05:13] LABS: Calcium 8.5 MG/DL (8.5-10.1); Osmolality,Calculated 285.8 MOS/KG (273-304)
[2019-12-14] MEDS: POTASSIUM CHLORIDE RIDER 20 MEQ in PREMIX 1 EACH IV PRN ×2 (05:49→06:22)
[2019-12-14] MEDS: LEVOTHYROXINE 100 MCG VIAL IV SCH (06:26)
[2019-12-14] MEDS: FUROSEMIDE 40 MG/4 ML VIAL IV SCH (08:40)
[2019-12-14] MEDS: PANTOPRAZOLE 40 MG VIAL IV SCH (08:50)
[2019-12-14] MEDS: INSULIN GLARGINE 100 UNIT/ML SUBCUT SCH (08:52)
[2019-12-14] MEDS: carvediloL 3.125 MG TABLET PO SCH ×2 (08:52→21:49)
[2019-12-14] MEDS: APIXABAN 2.5 MG TABLET PO SCH ×2 (08:52→21:49)
[2019-12-14] MEDS: lisinopriL 2.5 MG TABLET PO SCH ×2 (08:52→21:49)
[2019-12-14] MEDS: POLYETHYLENE GLYCOL POWDER 17 GM PACK PO SCH (08:56)
[2019-12-14] MEDS: ASPIRIN EC 81 MG TABLET PO SCH (08:56)
[2019-12-14] MEDS: DOCUSATE SODIUM 100 MG CAPSULE PO SCH (08:56)
[2019-12-14] MEDS: CHLORHEXIDINE 0.12% ORAL RINSE 60 ML BOTTLE SWISH/SPIT SCH ×2 (08:59→21:49)
[2019-12-14] MEDS: SODIUM CHLORIDE 0.45% 1,000 ML IV SCH (12:23)
[2019-12-14] MEDS: POTASSIUM CHLORIDE 20 MEQ TABLET PO SCH (12:36)
[2019-12-14] MEDS: ROSUVASTATIN 20 MG TABLET NG SCH (21:49)
[2019-12-15] MEDS: methylPREDNISolone SOD SUC 125 MG/2 ML VIAL IV SCH ×2 (00:46→08:35)
[2019-12-15] MEDS: INSULIN LISPRO 100 UNIT/ML SUBCUT SCH ×3 (00:46→07:51)
[2019-12-15] MEDS: ALBUTEROL/IPRATROPIUM 3 ML NEB RESP TX SCH ×4 (01:30→19:23)
[2019-12-15 05:08] LABS: Basophils % 0.1 % (0.0-0.8); Hematocrit 28.7 VOL% (42.0-52.0); Hemoglobin 9.4 GM/DL (14.0-18.0); Immature Granulocytes % 0.9 %; Immature Granulocytes Absolute 0.11 #; Lymphocytes # 0.3 10*3/uL (1.4-4.0); Mean Corpuscular HGB Conc 32.8 GM/DL (32-36); Mean Corpuscular Volume 88.3 FL (87-102); Monocytes % 3.5 % (1.7-12.7); Neutrophils % 93.5 % (38.7-73.9); Platelet Count 73 T/CUMM (130-400); Red Blood Count 3.25 MC/CUMM (3.8-5.5); Red Cell Distribution Width 15.2 % (9.3-17.3); White Blood Count 12.6 T/CUMM (4-12)
[2019-12-15 05:20] LABS: Calcium 8.5 MG/DL (8.5-10.1); Osmolality,Calculated 288.7 MOS/KG (273-304)
[2019-12-15] MEDS: cefTRIAXone 500 MG in SYRINGE 1 EACH IV SCH ×2 (05:27→15:49)
[2019-12-15 05:45] LABS: Hypochromasia 1+; Lymphocytes 1 % (20-55); Microcytosis Slight; Ovalocytes Slight; Platelet Estimate Decreased; Segmented Neutrophils 96 % (50-85); Total Cells Counted 100
[2019-12-15] MEDS: LEVOTHYROXINE 100 MCG VIAL IV SCH (06:51)
[2019-12-15] MEDS: ASPIRIN EC 81 MG TABLET PO SCH (09:13)
[2019-12-15] MEDS: APIXABAN 2.5 MG TABLET PO SCH ×2 (09:25→21:01)
[2019-12-15] MEDS: POTASSIUM CHLORIDE 20 MEQ TABLET PO SCH (09:25)
[2019-12-15] MEDS: carvediloL 6.25 MG TABLET PO SCH ×2 (09:25→21:01)
[2019-12-15] MEDS: DOCUSATE SODIUM 100 MG CAPSULE PO SCH (09:25)
[2019-12-15] MEDS: methylPREDNISolone SOD SUC 40 MG/1 ML VIAL IV SCH ×2 (09:26→21:00)
[2019-12-15] MEDS: PANTOPRAZOLE 40 MG VIAL IV SCH (09:26)
[2019-12-15] MEDS: CHLORHEXIDINE 0.12% ORAL RINSE 60 ML BOTTLE SWISH/SPIT SCH ×2 (09:26→21:01)
[2019-12-15] MEDS: POLYETHYLENE GLYCOL POWDER 17 GM PACK PO SCH (09:26)
[2019-12-15] MEDS: lisinopriL 2.5 MG TABLET PO SCH ×2 (09:26→21:01)
[2019-12-15] MEDS: INSULIN GLARGINE 100 UNIT/ML SUBCUT SCH (09:26)
[2019-12-15] MEDS ORDERED: MAGNESIUM SULF RIDER 4 GM in PREMIX 1 EACH IV PRN (10:40)
[2019-12-15] MEDS ORDERED: GLUCAGON 1 MG VIAL IM PRN (10:40)
[2019-12-15] MEDS ORDERED: ACETAMINOPHEN 325 MG TABLET PO PRN (10:40)
[2019-12-15] MEDS ORDERED: ZALEPLON 5 MG CAPSULE PO PRN (10:40)
[2019-12-15] MEDS ORDERED: oxyCODONE/ACETAMINOPHEN 5-325 MG TABLET PO PRN (10:40)
[2019-12-15] MEDS ORDERED: POTASSIUM CHLORIDE 20 MEQ TABLET PO PRN (10:40)
[2019-12-15] MEDS ORDERED: ALUMINUM/MAGNES/SIMETH MAX STR 30 ML UDCUP PO PRN (10:40)
[2019-12-15] MEDS ORDERED: MAGNESIUM SULF RIDER 2 GM in PREMIX 1 EACH IV PRN (10:40)
[2019-12-15] MEDS ORDERED: DEXTROSE 50% 25 GM/50 ML VIAL IV PRN (10:40)
[2019-12-15] MEDS ORDERED: MAGNESIUM HYDROXIDE SUSP 30 ML UDCUP PO PRN (10:40)
[2019-12-15] MEDS ORDERED: ONDANSETRON 4 MG/2 ML VIAL IV PRN (10:40)
[2019-12-15] MEDS ORDERED: SODIUM CHLOR 0.45% KCL 20 MEQ 20 MEQ/1,000 ML BAG IV SCH (11:00)
[2019-12-15] MEDS: INSULIN REGULAR 100 UNIT/ML SUBCUT SCH ×2 (12:12→17:18)
[2019-12-15] MEDS: FUROSEMIDE 40 MG/4 ML VIAL IV SCH (15:48)
[2019-12-15] MEDS: ROSUVASTATIN 20 MG TABLET NG SCH (21:01)
[2019-12-16] MEDS: ALBUTEROL/IPRATROPIUM 3 ML NEB RESP TX SCH ×4 (00:10→20:22)
[2019-12-16] MEDS: cefTRIAXone 500 MG in SYRINGE 1 EACH IV SCH ×2 (05:14→15:24)
[2019-12-16 06:03] LABS: Hematocrit 27.3 VOL% (42.0-52.0); Hemoglobin 9.1 GM/DL (14.0-18.0); Immature Granulocytes % 0.7 %; Immature Granulocytes Absolute 0.07 #; Lymphocytes # 0.4 10*3/uL (1.4-4.0); Mean Corpuscular HGB Conc 33.3 GM/DL (32-36); Mean Corpuscular Volume 88.6 FL (87-102); Mean Platelet Volume 11.1 FL (9.6-12.0); Monocytes % 5.1 % (1.7-12.7); Neutrophils % 90.2 % (38.7-73.9); Red Blood Count 3.08 MC/CUMM (3.8-5.5); Red Cell Distribution Width 15.5 % (9.3-17.3); White Blood Count 9.9 T/CUMM (4-12)
[2019-12-16 06:05] LABS: Platelet Count 86 T/CUMM (130-400)
[2019-12-16 06:12] LABS: Alanine Aminotransferase 98 U/L (16-61); Albumin 2.8 G/DL (3.4-5.0); Alkaline Phosphatase 76 U/L (45-117); Aspartate Amino Transferase 42 U/L (0-37); Bilirubin,Indirect 0.9 MG/DL (0.0-1.0); Blood Urea Nitrogen 45 MG/DL (7-18); Calcium 8.6 MG/DL (8.5-10.1); Estimated Glom Filtration Rate 75 ML/MIN; Glucose 97 MG/DL (74-106)
[2019-12-16 06:13] LABS: Troponin I 0.503 NG/ML (0.00-0.045)
[2019-12-16 06:25] LABS: Hypochromasia 1+; Lymphocytes 3 % (20-55); Microcytosis Slight; Platelet Estimate Decreased; Segmented Neutrophils 93 % (50-85); Total Cells Counted 100
[2019-12-16] MEDS: ASPIRIN EC 81 MG TABLET PO SCH (09:17)
[2019-12-16] MEDS: POTASSIUM CHLORIDE 20 MEQ TABLET PO SCH ×2 (09:17→21:52)
[2019-12-16] MEDS: lisinopriL 2.5 MG TABLET PO SCH ×2 (09:17→21:52)
[2019-12-16] MEDS: APIXABAN 2.5 MG TABLET PO SCH ×2 (09:17→21:52)
[2019-12-16] MEDS: PANTOPRAZOLE 40 MG TABLET PO SCH (09:17)
[2019-12-16] MEDS: FERROUS SULFATE 325 MG TABLET PO SCH (09:17)
[2019-12-16] MEDS: allopurinoL 100 MG TABLET PO SCH (09:17)
[2019-12-16] MEDS: carvediloL 6.25 MG TABLET PO SCH ×2 (09:17→21:52)
[2019-12-16] MEDS: FUROSEMIDE 40 MG/4 ML VIAL IV SCH ×2 (09:18→15:24)
[2019-12-16] MEDS: LEVOTHYROXINE 100 MCG VIAL IV SCH (09:18)
[2019-12-16] MEDS: methylPREDNISolone SOD SUC 40 MG/1 ML VIAL IV SCH ×2 (09:18→21:52)
[2019-12-16] MEDS: INSULIN GLARGINE 100 UNIT/ML SUBCUT SCH (09:19)
[2019-12-16] MEDS: CHLORHEXIDINE 0.12% ORAL RINSE 60 ML BOTTLE SWISH/SPIT SCH ×2 (09:19→21:53)
[2019-12-16] MEDS: ROSUVASTATIN 20 MG TABLET NG SCH (21:52)
[2019-12-17] MEDS: ALBUTEROL/IPRATROPIUM 3 ML NEB RESP TX SCH ×4 (01:27→20:04)
[2019-12-17] MEDS: cefTRIAXone 500 MG in SYRINGE 1 EACH IV SCH ×2 (04:42→16:01)
[2019-12-17 05:29] LABS: Basophils % 0.1 % (0.0-0.8); Eosinophils % 0.1 % (0.00-10.9); Hematocrit 27.3 VOL% (42.0-52.0); Immature Granulocytes % 0.6 %; Immature Granulocytes Absolute 0.06 #; Lymphocytes # 0.4 10*3/uL (1.4-4.0); Lymphocytes % 4.1 % (21.2-54.2); Mean Platelet Volume 10.5 FL (9.6-12.0); Monocytes % 4.3 % (1.7-12.7); Neutrophils % 90.8 % (38.7-73.9); Platelet Count 94 T/CUMM (130-400); Red Cell Distribution Width 16.1 % (9.3-17.3)
[2019-12-17 05:47] LABS: Hypochromasia 1+; Lymphocytes 1 % (20-55); Microcytosis 1+; Platelet Estimate Decreased; Segmented Neutrophils 97 % (50-85); Total Cells Counted 100
[2019-12-17 05:48] LABS: Alanine Aminotransferase 90 U/L (16-61); Albumin 2.8 G/DL (3.4-5.0); Alkaline Phosphatase 77 U/L (45-117); Aspartate Amino Transferase 35 U/L (0-37); Bilirubin,Indirect 0.8 MG/DL (0.0-1.0); Blood Urea Nitrogen 49 MG/DL (7-18); Calcium 8.5 MG/DL (8.5-10.1); Estimated Glom Filtration Rate 86 ML/MIN; Glucose 127 MG/DL (74-106); Osmolality,Calculated 289.7 MOS/KG (273-304); Total Protein 6.1 G/DL (6.4-8.3)
[2019-12-17 05:49] LABS: Troponin I 0.407 NG/ML (0.00-0.045)
[2019-12-17] MEDS: LEVOTHYROXINE 100 MCG VIAL IV SCH (06:20)
[2019-12-17] MEDS: FERROUS SULFATE 325 MG TABLET PO SCH (09:27)
[2019-12-17] MEDS: allopurinoL 100 MG TABLET PO SCH (09:27)
[2019-12-17] MEDS: carvediloL 6.25 MG TABLET PO SCH (09:27)
[2019-12-17] MEDS: APIXABAN 2.5 MG TABLET PO SCH ×2 (09:27→21:56)
[2019-12-17] MEDS: methylPREDNISolone SOD SUC 40 MG/1 ML VIAL IV SCH (09:27)
[2019-12-17] MEDS: PANTOPRAZOLE 40 MG TABLET PO SCH (09:27)
[2019-12-17] MEDS: ASPIRIN EC 81 MG TABLET PO SCH (09:27)
[2019-12-17] MEDS: POTASSIUM CHLORIDE 20 MEQ TABLET PO SCH ×2 (09:27→21:56)
[2019-12-17] MEDS: FUROSEMIDE 40 MG/4 ML VIAL IV SCH (09:30)
[2019-12-17] MEDS: INSULIN GLARGINE 100 UNIT/ML SUBCUT SCH (09:37)
[2019-12-17] MEDS: CHLORHEXIDINE 0.12% ORAL RINSE 60 ML BOTTLE SWISH/SPIT SCH ×2 (09:38→22:16)
[2019-12-17] MEDS: lisinopriL 2.5 MG TABLET PO SCH (09:51)
[2019-12-17] MEDS: DEXTROSE 5% LACTATED RINGERS 1,000 ML IV SCH ×2 (12:50→22:44)
[2019-12-17] MEDS: ROSUVASTATIN 20 MG TABLET NG SCH (21:56)
[2019-12-17] MEDS: methylPREDNISolone SOD SUC 125 MG/2 ML VIAL IV SCH (21:56)
[2019-12-18] MEDS: ALBUTEROL/IPRATROPIUM 3 ML NEB RESP TX SCH ×4 (01:36→20:17)
[2019-12-18] MEDS: cefTRIAXone 500 MG in SYRINGE 1 EACH IV SCH ×2 (03:34→15:22)
[2019-12-18] MEDS: POTASSIUM CHLORIDE 20 MEQ TABLET PO SCH ×2 (08:32→21:43)
[2019-12-18] MEDS: ASPIRIN EC 81 MG TABLET PO SCH (08:32)
[2019-12-18] MEDS: PANTOPRAZOLE 40 MG TABLET PO SCH (08:32)
[2019-12-18] MEDS: FERROUS SULFATE 325 MG TABLET PO SCH (08:32)
[2019-12-18] MEDS: APIXABAN 2.5 MG TABLET PO SCH ×2 (08:32→21:44)
[2019-12-18] MEDS: LEVOTHYROXINE 100 MCG VIAL IV SCH (08:33)
[2019-12-18] MEDS: DEXTROSE 5% LACTATED RINGERS 1,000 ML IV SCH ×2 (08:36→21:42)
[2019-12-18] MEDS: methylPREDNISolone SOD SUC 125 MG/2 ML VIAL IV SCH ×2 (08:36→21:43)
[2019-12-18] MEDS: allopurinoL 100 MG TABLET PO SCH (08:39)
[2019-12-18] MEDS: CHLORHEXIDINE 0.12% ORAL RINSE 60 ML BOTTLE SWISH/SPIT SCH ×2 (08:39→21:30)
[2019-12-18] MEDS: INSULIN GLARGINE 100 UNIT/ML SUBCUT SCH (09:17)
[2019-12-18] MEDS: ROSUVASTATIN 20 MG TABLET NG SCH (21:43)
[2019-12-19] MEDS: ALBUTEROL/IPRATROPIUM 3 ML NEB RESP TX SCH ×4 (03:10→19:10)
[2019-12-19] MEDS: cefTRIAXone 500 MG in SYRINGE 1 EACH IV SCH ×2 (04:01→16:25)
[2019-12-19 06:42] LABS: Hematocrit 22.9 VOL% (42.0-52.0); Hemoglobin 7.3 GM/DL (14.0-18.0); Immature Granulocytes % 0.7 %; Immature Granulocytes Absolute 0.05 #; Lymphocytes # 0.3 10*3/uL (1.4-4.0); Lymphocytes % 4.2 % (21.2-54.2); Mean Corpuscular HGB Conc 31.9 GM/DL (32-36); Mean Corpuscular Volume 97.4 FL (87-102); Mean Platelet Volume 10.4 FL (9.6-12.0); Monocytes % 4.4 % (1.7-12.7); Neutrophils % 90.7 % (38.7-73.9); Platelet Count 101 T/CUMM (130-400); Red Blood Count 2.35 MC/CUMM (3.8-5.5); White Blood Count 7.7 T/CUMM (4-12)
[2019-12-19 07:04] LABS: Alanine Aminotransferase 107 U/L (16-61); Albumin 2.4 G/DL (3.4-5.0); Alkaline Phosphatase 77 U/L (45-117); Aspartate Amino Transferase 61 U/L (0-37); Bilirubin,Indirect 0.6 MG/DL (0.0-1.0); Blood Urea Nitrogen 40 MG/DL (7-18); Estimated Glom Filtration Rate 89 ML/MIN; Glucose 163 MG/DL (74-106); Osmolality,Calculated 301.7 MOS/KG (273-304); Total Protein 5.2 G/DL (6.4-8.3)
[2019-12-19 07:08] LABS: Troponin I 0.257 NG/ML (0.00-0.045)
[2019-12-19 07:09] LABS: Lymphocytes 4 % (20-55); Segmented Neutrophils 96 % (50-85); Total Cells Counted 100
[2019-12-19 07:12] LABS: Ovalocytes Few
[2019-12-19 07:13] LABS: Polychromasia Slight
[2019-12-19] MEDS ORDERED: SODIUM CHLORIDE 0.9% 1,000 ML IV PRN (07:13)
[2019-12-19 07:15] LABS: Platelet Estimate Adequate
[2019-12-19] MEDS ORDERED: FUROSEMIDE 40 MG/4 ML VIAL IV ONE (08:51)
[2019-12-19] MEDS: POTASSIUM CHLORIDE 20 MEQ TABLET PO SCH (09:36)
[2019-12-19] MEDS: INSULIN GLARGINE 100 UNIT/ML SUBCUT SCH (09:36)
[2019-12-19] MEDS: FERROUS SULFATE 325 MG TABLET PO SCH (09:36)
[2019-12-19] MEDS: LEVOTHYROXINE 100 MCG VIAL IV SCH (09:36)
[2019-12-19] MEDS: CHLORHEXIDINE 0.12% ORAL RINSE 60 ML BOTTLE SWISH/SPIT SCH (09:37)
[2019-12-19] MEDS: PANTOPRAZOLE 40 MG TABLET PO SCH (09:38)
[2019-12-19] MEDS: methylPREDNISolone SOD SUC 125 MG/2 ML VIAL IV SCH (09:38)
[2019-12-19] MEDS: allopurinoL 100 MG TABLET PO SCH (09:38)
[2019-12-19] MEDS ORDERED: DEXTROSE 50% 25 GM/50 ML VIAL IV PRN (15:52)
[2019-12-20] MEDS: ROSUVASTATIN 20 MG TABLET NG SCH ×2 (00:46→22:19)
[2019-12-20] MEDS: POTASSIUM CHLORIDE 20 MEQ TABLET PO SCH ×3 (00:46→22:19)
[2019-12-20] MEDS: CHLORHEXIDINE 0.12% ORAL RINSE 60 ML BOTTLE SWISH/SPIT SCH ×3 (00:47→22:17)
[2019-12-20] MEDS: methylPREDNISolone SOD SUC 125 MG/2 ML VIAL IV SCH ×3 (00:47→22:18)
[2019-12-20] MEDS: ALBUTEROL/IPRATROPIUM 3 ML NEB RESP TX SCH ×4 (00:50→19:33)
[2019-12-20] MEDS: cefTRIAXone 500 MG in SYRINGE 1 EACH IV SCH ×2 (05:30→15:48)
[2019-12-20 06:14] LABS: Hematocrit 29.5 VOL% (42.0-52.0); Hemoglobin 9.8 GM/DL (14.0-18.0); Immature Granulocytes % 0.5 %; Immature Granulocytes Absolute 0.04 #; Lymphocytes # 0.3 10*3/uL (1.4-4.0); Lymphocytes % 4.2 % (21.2-54.2); Mean Corpuscular HGB Conc 33.2 GM/DL (32-36); Mean Corpuscular Volume 96.7 FL (87-102); Mean Platelet Volume 10.3 FL (9.6-12.0); Monocytes % 3.7 % (1.7-12.7); Neutrophils % 91.6 % (38.7-73.9); Platelet Count 107 T/CUMM (130-400); Red Blood Count 3.05 MC/CUMM (3.8-5.5); Red Cell Distribution Width 20.4 % (9.3-17.3); White Blood Count 7.6 T/CUMM (4-12)
[2019-12-20 06:29] LABS: Alanine Aminotransferase 174 U/L (16-61); Albumin 2.8 G/DL (3.4-5.0); Alkaline Phosphatase 108 U/L (45-117); Aspartate Amino Transferase 130 U/L (0-37); Bilirubin,Indirect 1.4 MG/DL (0.0-1.0); Blood Urea Nitrogen 42 MG/DL (7-18); Calcium 8.8 MG/DL (8.5-10.1); Estimated Glom Filtration Rate 94 ML/MIN; Glucose 61 MG/DL (74-106); Osmolality,Calculated 294.8 MOS/KG (273-304); Total Protein 5.9 G/DL (6.4-8.3); Troponin I 0.235 NG/ML (0.00-0.045)
[2019-12-20] MEDS: LEVOTHYROXINE 100 MCG VIAL IV SCH (07:22)
[2019-12-20 07:30] LABS: Anisocytosis 1+; Band Neutrophils 6 % (0-10); Lymphocytes 2 % (20-55); Platelet Estimate Adequate; Segmented Neutrophils 90 % (50-85); Total Cells Counted 100
[2019-12-20 07:31] LABS: Poikilocytosis Slight
[2019-12-20] MEDS: allopurinoL 100 MG TABLET PO SCH (08:52)
[2019-12-20] MEDS: FERROUS SULFATE 325 MG TABLET PO SCH (08:52)
[2019-12-20] MEDS: INSULIN GLARGINE 100 UNIT/ML SUBCUT SCH (08:57)
[2019-12-20] MEDS: PANTOPRAZOLE 40 MG TABLET PO SCH (08:58)
[2019-12-20] MEDS: METOPROLOL TARTRATE 25 MG TABLET PO SCH (22:20)
[2019-12-21] MEDS: ALBUTEROL/IPRATROPIUM 3 ML NEB RESP TX SCH ×4 (01:13→19:45)
[2019-12-21 05:48] LABS: Hematocrit 28.9 VOL% (42.0-52.0); Hemoglobin 9.5 GM/DL (14.0-18.0); Immature Granulocytes % 0.4 %; Immature Granulocytes Absolute 0.02 #; Lymphocytes # 0.2 10*3/uL (1.4-4.0); Lymphocytes % 3.7 % (21.2-54.2); Mean Corpuscular HGB Conc 32.9 GM/DL (32-36); Mean Corpuscular Volume 96.7 FL (87-102); Mean Platelet Volume 10.6 FL (9.6-12.0); Monocytes % 3.4 % (1.7-12.7); Neutrophils % 92.5 % (38.7-73.9); Platelet Count 102 T/CUMM (130-400); Red Blood Count 2.99 MC/CUMM (3.8-5.5); Red Cell Distribution Width 20.5 % (9.3-17.3); White Blood Count 5.6 T/CUMM (4-12)
[2019-12-21 06:07] LABS: Calcium 8.9 MG/DL (8.5-10.1); Osmolality,Calculated 299.6 MOS/KG (273-304)
[2019-12-21 06:45] LABS: Anisocytosis 1+; Band Neutrophils 3 % (0-10); Lymphocytes 3 % (20-55); Macrocytosis Slight; Platelet Estimate Adequate; Segmented Neutrophils 93 % (50-85); Total Cells Counted 100
[2019-12-21] MEDS: cefTRIAXone 500 MG in SYRINGE 1 EACH IV SCH ×2 (07:08→16:57)
[2019-12-21] MEDS: LEVOTHYROXINE 100 MCG VIAL IV SCH (07:08)
[2019-12-21] MEDS: methylPREDNISolone SOD SUC 125 MG/2 ML VIAL IV SCH ×2 (09:55→22:06)
[2019-12-21] MEDS: allopurinoL 100 MG TABLET PO SCH (09:55)
[2019-12-21] MEDS: METOPROLOL TARTRATE 25 MG TABLET PO SCH ×2 (09:56→22:05)
[2019-12-21] MEDS: POTASSIUM CHLORIDE 20 MEQ TABLET PO SCH ×2 (09:56→22:05)
[2019-12-21] MEDS: PANTOPRAZOLE 40 MG TABLET PO SCH (09:56)
[2019-12-21] MEDS: CHLORHEXIDINE 0.12% ORAL RINSE 60 ML BOTTLE SWISH/SPIT SCH ×2 (09:56→22:05)
[2019-12-21] MEDS: FERROUS SULFATE 325 MG TABLET PO SCH (09:56)
[2019-12-21] MEDS ORDERED: FUROSEMIDE 40 MG/4 ML VIAL IV ONE (20:01)
[2019-12-21] MEDS: ROSUVASTATIN 20 MG TABLET NG SCH (22:05)
[2019-12-22] MEDS: ALBUTEROL/IPRATROPIUM 3 ML NEB RESP TX SCH ×4 (00:55→19:22)
[2019-12-22 05:33] LABS: Hematocrit 30.5 VOL% (42.0-52.0); Hemoglobin 9.8 GM/DL (14.0-18.0); Immature Granulocytes % 0.4 %; Immature Granulocytes Absolute 0.02 #; Lymphocytes # 0.2 10*3/uL (1.4-4.0); Lymphocytes % 4.4 % (21.2-54.2); Mean Corpuscular HGB Conc 32.1 GM/DL (32-36); Mean Corpuscular Volume 96.5 FL (87-102); Mean Platelet Volume 10.2 FL (9.6-12.0); Monocytes % 3.5 % (1.7-12.7); Neutrophils % 91.7 % (38.7-73.9); Platelet Count 103 T/CUMM (130-400); Red Blood Count 3.16 MC/CUMM (3.8-5.5); Red Cell Distribution Width 19.2 % (9.3-17.3); White Blood Count 5.5 T/CUMM (4-12)
[2019-12-22 06:05] LABS: Calcium 8.8 MG/DL (8.5-10.1); Osmolality,Calculated 304.6 MOS/KG (273-304)
[2019-12-22 06:07] LABS: Lymphocytes 5 % (20-55); Segmented Neutrophils 93 % (50-85); Total Cells Counted 100
[2019-12-22 06:08] LABS: Ovalocytes Few; Platelet Estimate Decreased
[2019-12-22] MEDS: cefTRIAXone 500 MG in SYRINGE 1 EACH IV SCH (06:08)
[2019-12-22] MEDS: LEVOTHYROXINE 100 MCG VIAL IV SCH (06:09)
[2019-12-22] MEDS: allopurinoL 100 MG TABLET PO SCH (09:50)
[2019-12-22] MEDS: METOPROLOL TARTRATE 25 MG TABLET PO SCH ×2 (09:50→21:48)
[2019-12-22] MEDS: POTASSIUM CHLORIDE 20 MEQ TABLET PO SCH ×2 (09:50→21:48)
[2019-12-22] MEDS: PANTOPRAZOLE 40 MG TABLET PO SCH (09:51)
[2019-12-22] MEDS: FERROUS SULFATE 325 MG TABLET PO SCH (09:51)
[2019-12-22] MEDS: methylPREDNISolone SOD SUC 125 MG/2 ML VIAL IV SCH ×2 (09:51→21:59)
[2019-12-22] MEDS: CHLORHEXIDINE 0.12% ORAL RINSE 60 ML BOTTLE SWISH/SPIT SCH ×2 (09:52→21:48)
[2019-12-22] MEDS: ROSUVASTATIN 20 MG TABLET NG SCH (21:48)
[2019-12-22] MEDS: CYPROHEPTADINE 4 MG TABLET PO SCH (21:48)
[2019-12-23] MEDS: ALBUTEROL/IPRATROPIUM 3 ML NEB RESP TX SCH ×4 (01:10→18:52)
[2019-12-23] MEDS: LEVOTHYROXINE 100 MCG VIAL IV SCH (06:03)
[2019-12-23] MEDS ORDERED: FUROSEMIDE 40 MG/4 ML VIAL IV SCH (09:00)
[2019-12-23] MEDS: POTASSIUM CHLORIDE 20 MEQ TABLET PO SCH ×2 (10:14→22:39)
[2019-12-23] MEDS: METOPROLOL TARTRATE 25 MG TABLET PO SCH ×2 (10:14→22:39)
[2019-12-23] MEDS: PANTOPRAZOLE 40 MG TABLET PO SCH (10:15)
[2019-12-23] MEDS: FERROUS SULFATE 325 MG TABLET PO SCH (10:15)
[2019-12-23] MEDS: CHLORHEXIDINE 0.12% ORAL RINSE 60 ML BOTTLE SWISH/SPIT SCH ×2 (10:16→22:40)
[2019-12-23] MEDS: allopurinoL 100 MG TABLET PO SCH (10:16)
[2019-12-23] MEDS: methylPREDNISolone SOD SUC 125 MG/2 ML VIAL IV SCH ×2 (10:16→22:36)
[2019-12-23] MEDS: CYPROHEPTADINE 4 MG TABLET PO SCH ×2 (10:16→22:40)
[2019-12-23] MEDS: NYSTATIN 500,000 UNIT/5 ML UDCUP SWISH/SWAL SCH ×4 (10:16→22:39)
[2019-12-23] MEDS: FLUCONAZOLE INJ 100 MG in IV BAG 1 EACH IV SCH (12:53)
[2019-12-23] MEDS: SODIUM CHLORIDE 0.9% 1,000 ML IV SCH (15:16)
[2019-12-23] MEDS: SODIUM CHLORIDE 0.9% IV SCH (22:31)
[2019-12-23] MEDS: ACYCLOVIR IV SCH (22:31)
[2019-12-23] MEDS: ROSUVASTATIN 20 MG TABLET NG SCH (22:39)
[2019-12-24] MEDS: ALBUTEROL/IPRATROPIUM 3 ML NEB RESP TX SCH ×4 (01:45→18:59)
[2019-12-24] MEDS: SODIUM CHLORIDE 0.9% 1,000 ML IV SCH ×2 (02:36→13:21)
[2019-12-24] MEDS: SODIUM CHLORIDE 0.9% IV SCH ×3 (04:13→21:51)
[2019-12-24] MEDS: ACYCLOVIR IV SCH ×3 (04:13→21:51)
[2019-12-24] MEDS: LEVOTHYROXINE 100 MCG VIAL IV SCH (06:07)
[2019-12-24 06:47] LABS: Hematocrit 30.9 VOL% (42.0-52.0); Hemoglobin 9.4 GM/DL (14.0-18.0); Immature Granulocytes % 0.3 %; Immature Granulocytes Absolute 0.01 #; Lymphocytes # 0.1 10*3/uL (1.4-4.0); Lymphocytes % 4.3 % (21.2-54.2); Mean Corpuscular HGB Conc 30.4 GM/DL (32-36); Mean Corpuscular Volume 97.2 FL (87-102); Mean Platelet Volume 10.9 FL (9.6-12.0); Neutrophils % 91.4 % (38.7-73.9); Red Blood Count 3.18 MC/CUMM (3.8-5.5); Red Cell Distribution Width 17.8 % (9.3-17.3); White Blood Count 3.3 T/CUMM (4-12)
[2019-12-24 06:53] LABS: Platelet Count 86 T/CUMM (130-400)
[2019-12-24 07:07] LABS: Hypochromasia 1+; Lymphocytes 4 % (20-55); Microcytosis 1+; Ovalocytes Slight; Platelet Estimate Decreased; Segmented Neutrophils 96 % (50-85); Total Cells Counted 100
[2019-12-24] MEDS ORDERED: MYLANTA/LIDO VISC/DIPH 300 ML BOTTLE SWISH/SWAL PRN (07:14)
[2019-12-24 07:23] LABS: Albumin 2.5 G/DL (3.4-5.0); Bilirubin,Total 1.4 MG/DL (0.2-1.0); Calcium 8.4 MG/DL (8.5-10.1); Osmolality,Calculated 315.7 MOS/KG (273-304); Total Protein 5.4 G/DL (6.4-8.3)
[2019-12-24] MEDS: FLUCONAZOLE INJ 100 MG in IV BAG 1 EACH IV SCH (09:36)
[2019-12-24] MEDS: methylPREDNISolone SOD SUC 125 MG/2 ML VIAL IV SCH ×2 (10:39→21:50)
[2019-12-24] MEDS: allopurinoL 100 MG TABLET PO SCH (12:52)
[2019-12-24] MEDS: METOPROLOL TARTRATE 25 MG TABLET PO SCH ×2 (12:52→21:56)
[2019-12-24] MEDS: PANTOPRAZOLE 40 MG TABLET PO SCH (12:52)
[2019-12-24] MEDS: FERROUS SULFATE 325 MG TABLET PO SCH (12:53)
[2019-12-24] MEDS: NYSTATIN 500,000 UNIT/5 ML UDCUP SWISH/SWAL SCH ×4 (12:53→22:10)
[2019-12-24] MEDS: POTASSIUM CHLORIDE 20 MEQ TABLET PO SCH ×2 (12:53→21:56)
[2019-12-24] MEDS: CYPROHEPTADINE 4 MG TABLET PO SCH ×3 (12:56→22:10)
[2019-12-24] MEDS: CHLORHEXIDINE 0.12% ORAL RINSE 60 ML BOTTLE SWISH/SPIT SCH ×2 (13:34→22:10)
[2019-12-24] MEDS: ROSUVASTATIN 20 MG TABLET NG SCH (21:56)
[2019-12-24] MEDS ORDERED: FUROSEMIDE 40 MG/4 ML VIAL IV ONE (22:19)
[2019-12-25] MEDS: ALBUTEROL/IPRATROPIUM 3 ML NEB RESP TX SCH ×4 (00:02→19:26)
[2019-12-25] MEDS: SODIUM CHLORIDE 0.9% 1,000 ML IV SCH ×2 (03:11→09:13)
[2019-12-25] MEDS: SODIUM CHLORIDE 0.9% IV SCH ×3 (03:55→22:47)
[2019-12-25] MEDS: ACYCLOVIR IV SCH ×3 (03:55→22:47)
[2019-12-25] MEDS: LEVOTHYROXINE 100 MCG VIAL IV SCH (06:05)
[2019-12-25 06:19] LABS: Calcium 8.4 MG/DL (8.5-10.1); Osmolality,Calculated 321.4 MOS/KG (273-304)
[2019-12-25] MEDS: NYSTATIN 500,000 UNIT/5 ML UDCUP SWISH/SWAL SCH ×4 (09:11→22:55)
[2019-12-25] MEDS: methylPREDNISolone SOD SUC 125 MG/2 ML VIAL IV SCH ×2 (09:11→22:46)
[2019-12-25] MEDS: METOPROLOL TARTRATE 25 MG TABLET PO SCH ×2 (09:20→22:39)
[2019-12-25] MEDS: CYPROHEPTADINE 4 MG TABLET PO SCH ×3 (09:20→22:40)
[2019-12-25] MEDS: FERROUS SULFATE 325 MG TABLET PO SCH (09:20)
[2019-12-25] MEDS: POTASSIUM CHLORIDE 20 MEQ TABLET PO SCH ×2 (09:20→22:39)
[2019-12-25] MEDS: PANTOPRAZOLE 40 MG TABLET PO SCH (09:21)
[2019-12-25] MEDS: allopurinoL 100 MG TABLET PO SCH (09:21)
[2019-12-25] MEDS: CHLORHEXIDINE 0.12% ORAL RINSE 60 ML BOTTLE SWISH/SPIT SCH ×2 (09:21→22:55)
[2019-12-25] MEDS: FLUCONAZOLE INJ 100 MG in IV BAG 1 EACH IV SCH (10:03)
[2019-12-25] MEDS ORDERED: METOPROLOL TARTRATE 5 MG/5 ML VIAL IV ONE (12:55)
[2019-12-25] MEDS ORDERED: SODIUM CHLORIDE 0.45% 1,000 ML IV SCH (16:00)
[2019-12-25] MEDS: ROSUVASTATIN 20 MG TABLET NG SCH (22:39)
[2019-12-25] MEDS: DEXTROSE 5% IV SCH (22:46)
[2019-12-25] MEDS: NACL 0.22% IV SCH (22:46)
[2019-12-25] MEDS: SODIUM ACETATE IV SCH (22:46)
[2019-12-26] MEDS: ALBUTEROL/IPRATROPIUM 3 ML NEB RESP TX SCH ×4 (00:12→19:11)
[2019-12-26] MEDS: SODIUM CHLORIDE 0.9% IV SCH ×3 (04:57→23:01)
[2019-12-26] MEDS: ACYCLOVIR IV SCH ×3 (04:57→23:01)
[2019-12-26 05:36] LABS: Hematocrit 30.5 VOL% (42.0-52.0); Hemoglobin 9.4 GM/DL (14.0-18.0); Immature Granulocytes % 0.3 %; Immature Granulocytes Absolute 0.01 #; Lymphocytes # 0.1 10*3/uL (1.4-4.0); Lymphocytes % 4.7 % (21.2-54.2); Mean Corpuscular HGB Conc 30.8 GM/DL (32-36); Mean Corpuscular Volume 97.4 FL (87-102); Mean Platelet Volume 11.3 FL (9.6-12.0); Red Blood Count 3.13 MC/CUMM (3.8-5.5); Red Cell Distribution Width 18.2 % (9.3-17.3)
[2019-12-26 05:39] LABS: Platelet Count 67 T/CUMM (130-400)
[2019-12-26 05:48] LABS: INR 1.1
[2019-12-26 05:52] LABS: Calcium 8.5 MG/DL (8.5-10.1); Osmolality,Calculated 317.7 MOS/KG (273-304)
[2019-12-26 06:07] LABS: Band Neutrophils 2 % (0-10); Hypochromasia 1+; Lymphocytes 6 % (20-55); Microcytosis 1+; Ovalocytes Slight; Platelet Estimate Decreased; Segmented Neutrophils 88 % (50-85); Total Cells Counted 100
[2019-12-26] MEDS: LEVOTHYROXINE 100 MCG VIAL IV SCH (06:22)
[2019-12-26] MEDS ORDERED: ceFAZolin 1,000 MG in SYRINGE 1 EACH IV ONE (08:00)
[2019-12-26] MEDS ORDERED: LACTATED RINGERS 1,000 ML IV SCH (08:00)
[2019-12-26] MEDS ORDERED: LIDOCAINE 2% 5 ML VIAL ONE (09:00)
[2019-12-26] MEDS ORDERED: propofoL 200 MG/20 ML VIAL IV ONE (09:00)
[2019-12-26] MEDS ORDERED: ETOMIDATE 20 MG/10 ML VIAL IV ONE (09:00)
[2019-12-26] MEDS: methylPREDNISolone SOD SUC 125 MG/2 ML VIAL IV SCH ×2 (09:40→21:16)
[2019-12-26] MEDS: NYSTATIN 500,000 UNIT/5 ML UDCUP SWISH/SWAL SCH ×4 (10:00→21:09)
[2019-12-26] MEDS: POTASSIUM CHLORIDE 20 MEQ TABLET PO SCH ×2 (10:00→21:11)
[2019-12-26] MEDS: CYPROHEPTADINE 4 MG TABLET PO SCH ×3 (10:00→21:12)
[2019-12-26] MEDS: METOPROLOL TARTRATE 25 MG TABLET PO SCH ×2 (10:00→21:11)
[2019-12-26] MEDS: CHLORHEXIDINE 0.12% ORAL RINSE 60 ML BOTTLE SWISH/SPIT SCH ×2 (10:00→21:12)
[2019-12-26] MEDS: FERROUS SULFATE 325 MG TABLET PO SCH (10:00)
[2019-12-26] MEDS: PANTOPRAZOLE 40 MG TABLET PO SCH (10:00)
[2019-12-26] MEDS: allopurinoL 100 MG TABLET PO SCH (10:01)
[2019-12-26] MEDS ORDERED: SUCCINYLCHOLINE 200 MG/10 ML VIAL ONE (12:26)
[2019-12-26] MEDS ORDERED: fentaNYL 100 MCG/2 ML VIAL ONE (12:35)
[2019-12-26] MEDS: FLUCONAZOLE INJ 100 MG in IV BAG 1 EACH IV SCH (14:41)
[2019-12-26] MEDS: NACL 0.22% IV SCH (14:43)
[2019-12-26] MEDS: SODIUM ACETATE IV SCH (14:43)
[2019-12-26] MEDS: DEXTROSE 5% IV SCH (14:43)
[2019-12-26] MEDS ORDERED: CEFTAROLINE 400 MG in SODIUM CHLORIDE 0.9% 100 ML IV SCH (16:30)
[2019-12-26] MEDS: CEFEPIME 1,000 MG in SODIUM CHLORIDE 0.9% 100 ML IV SCH (17:56)
[2019-12-26] MEDS ORDERED: VANCOMYCIN INJ 1,000 MG in SODIUM CHLORIDE 0.9% 250 ML IV SCH (20:00)
[2019-12-26] MEDS: ROSUVASTATIN 20 MG TABLET NG SCH (21:12)
[2019-12-27] MEDS: CEFEPIME 1,000 MG in SODIUM CHLORIDE 0.9% 100 ML IV SCH ×3 (00:04→12:50)
[2019-12-27] MEDS: ALBUTEROL/IPRATROPIUM 3 ML NEB RESP TX SCH ×4 (01:44→19:30)
[2019-12-27 02:39] LABS: ABG Base Excess 2.8 MMOL/L (-2.5-2.5); ABG PCO2 28.7 MM HG (35-48); ABG PH 7.546 (7.35-7.45); ABG TCO2 22.9 MMOL/L (23-27); Allen Test Positive; Pt O2 Delivery Device Ventilator
[2019-12-27 04:21] LABS: Hemoglobin 8.3 GM/DL (14.0-18.0); Immature Granulocytes % 0.6 %; Immature Granulocytes Absolute 0.01 #; Lymphocytes # 0.1 10*3/uL (1.4-4.0); Lymphocytes % 8.9 % (21.2-54.2); Mean Corpuscular HGB Conc 31.9 GM/DL (32-36); Mean Corpuscular Volume 94.2 FL (87-102); Mean Platelet Volume 11.7 FL (9.6-12.0); Monocytes % 5.1 % (1.7-12.7); Neutrophils % 85.4 % (38.7-73.9); Red Blood Count 2.76 MC/CUMM (3.8-5.5); Red Cell Distribution Width 17.7 % (9.3-17.3)
[2019-12-27 04:25] LABS: Platelet Count 41 T/CUMM (130-400); White Blood Count 1.6 T/CUMM (4-12)
[2019-12-27 04:37] LABS: Osmolality,Calculated 316.7 MOS/KG (273-304)
[2019-12-27 04:46] LABS: Band Neutrophils 4 % (0-10); Hypochromasia Slight; Lymphocytes 6 % (20-55); Microcytosis 1+; Segmented Neutrophils 88 % (50-85); Total Cells Counted 100
[2019-12-27 04:47] LABS: Platelet Estimate Decreased
[2019-12-27] MEDS: POTASSIUM CHLORIDE 20 MEQ/15 ML UDCUP PER TUBE PRN ×4 (06:31→21:17)
[2019-12-27] MEDS: LEVOTHYROXINE 100 MCG VIAL IV SCH (06:35)
[2019-12-27] MEDS: ACYCLOVIR IV SCH ×2 (06:43→16:39)
[2019-12-27] MEDS: SODIUM CHLORIDE 0.9% IV SCH ×2 (06:43→16:39)
[2019-12-27] MEDS: SODIUM ACETATE IV SCH ×2 (06:53→22:36)
[2019-12-27] MEDS: DEXTROSE 5% IV SCH ×2 (06:53→22:36)
[2019-12-27] MEDS: NACL 0.22% IV SCH ×2 (06:53→22:36)
[2019-12-27] MEDS: CYPROHEPTADINE 4 MG TABLET PO SCH ×3 (09:57→21:17)
[2019-12-27] MEDS: allopurinoL 100 MG TABLET PO SCH (09:57)
[2019-12-27] MEDS: FERROUS SULFATE 325 MG TABLET PO SCH (09:57)
[2019-12-27] MEDS: NYSTATIN 500,000 UNIT/5 ML UDCUP SWISH/SWAL SCH ×4 (09:58→21:16)
[2019-12-27] MEDS: methylPREDNISolone SOD SUC 125 MG/2 ML VIAL IV SCH ×2 (09:58→21:16)
[2019-12-27] MEDS: METOPROLOL TARTRATE 25 MG TABLET PO SCH ×2 (09:58→21:17)
[2019-12-27] MEDS: POTASSIUM CHLORIDE 20 MEQ TABLET PO SCH ×2 (09:59→21:17)
[2019-12-27] MEDS: PANTOPRAZOLE 40 MG TABLET PO SCH (09:59)
[2019-12-27] MEDS: CHLORHEXIDINE 0.12% ORAL RINSE 60 ML BOTTLE SWISH/SPIT SCH ×2 (09:59→21:18)
[2019-12-27 11:31] LABS: ABG Base Excess 2.8 MMOL/L (-2.5-2.5); ABG HCO3 26.9 MMOL/L (20-26); ABG PH 7.553 (7.35-7.45); ABG TCO2 22.7 MMOL/L (23-27); Glucose Heart Surgery 251 MG/DL (74-106); Hematocrit Heart Surgery 27.6 PERCENT (42-52); Hemoglobin Heart Surgery 8.9 G/DL (14.0-18.0); Potassium Heart/CVR 4.3 MMOL/L (3.5-5.1)
[2019-12-27] MEDS: ROSUVASTATIN 20 MG TABLET NG SCH (21:17)
[2019-12-28] MEDS: ALBUTEROL/IPRATROPIUM 3 ML NEB RESP TX SCH ×4 (01:10→19:26)
[2019-12-28 04:14] LABS: Basophils % 0.4 % (0.0-0.8); Hematocrit 30.1 VOL% (42.0-52.0); Hemoglobin 9.4 GM/DL (14.0-18.0); Immature Granulocytes % 0.7 %; Immature Granulocytes Absolute 0.02 #; Lymphocytes # 0.1 10*3/uL (1.4-4.0); Lymphocytes % 3.3 % (21.2-54.2); Mean Corpuscular HGB Conc 31.2 GM/DL (32-36); Mean Corpuscular Volume 95.3 FL (87-102); Mean Platelet Volume 11.9 FL (9.6-12.0); Monocytes % 3.3 % (1.7-12.7); Neutrophils % 92.3 % (38.7-73.9); Red Blood Count 3.16 MC/CUMM (3.8-5.5); Red Cell Distribution Width 18.4 % (9.3-17.3); White Blood Count 2.7 T/CUMM (4-12)
[2019-12-28 04:21] LABS: Platelet Count 35 T/CUMM (130-400)
[2019-12-28 04:38] LABS: Osmolality,Calculated 314.3 MOS/KG (273-304)
[2019-12-28 04:48] LABS: Band Neutrophils 2 % (0-10); Hypochromasia Slight; Lymphocytes 3 % (20-55); Platelet Estimate Decreased; Segmented Neutrophils 94 % (50-85); Total Cells Counted 100
[2019-12-28] MEDS: POTASSIUM CHLORIDE 20 MEQ/15 ML UDCUP PER TUBE PRN (06:06)
[2019-12-28] MEDS: LEVOTHYROXINE 100 MCG VIAL IV SCH (06:06)
[2019-12-28] MEDS: FAMOTIDINE 8 MG/ML 50 ML/BOTTLE PO SCH ×2 (08:33→20:12)
[2019-12-28] MEDS: CYPROHEPTADINE 4 MG TABLET PO SCH ×3 (08:34→20:12)
[2019-12-28] MEDS: methylPREDNISolone SOD SUC 125 MG/2 ML VIAL IV SCH ×2 (08:34→20:11)
[2019-12-28] MEDS: METOPROLOL TARTRATE 25 MG TABLET PO SCH ×2 (08:42→20:11)
[2019-12-28] MEDS: allopurinoL 100 MG TABLET PO SCH (08:42)
[2019-12-28] MEDS: FERROUS SULFATE 325 MG TABLET PO SCH (08:44)
[2019-12-28] MEDS: NYSTATIN 500,000 UNIT/5 ML UDCUP SWISH/SWAL SCH ×4 (08:44→20:11)
[2019-12-28] MEDS: CHLORHEXIDINE 0.12% ORAL RINSE 60 ML BOTTLE SWISH/SPIT SCH ×2 (08:44→20:12)
[2019-12-28] MEDS: POTASSIUM CHLORIDE 20 MEQ TABLET PO SCH (08:46)
[2019-12-28] MEDS ORDERED: oxyCODONE/ACETAMINOPHEN 5-325 MG TABLET PO PRN (09:22)
[2019-12-28] MEDS ORDERED: AMIODARONE INJ 150 MG in DEXTROSE 5% 100 ML IV ONE (09:46)
[2019-12-28] MEDS: POTASSIUM CHLORIDE 20 MEQ/15 ML UDCUP PO SCH ×2 (09:59→20:11)
[2019-12-28] MEDS ORDERED: AMIODARONE INJ 450 MG in DEXTROSE 5% 241 ML IV SCH ×2 (10:00→16:00)
[2019-12-28] MEDS ORDERED: SALIVA SUBSTITUTE SPRAY 60 ML CAN SWISH/SWAL PRN (11:52)
[2019-12-28] MEDS: INSULIN REGULAR 100 UNIT/ML SUBCUT SCH ×3 (13:16→23:56)
[2019-12-28] MEDS: DEXTROSE 5% IV SCH ×3 (14:53→17:27)
[2019-12-28] MEDS: SODIUM ACETATE IV SCH ×3 (14:53→17:27)
[2019-12-28] MEDS: NACL 0.22% IV SCH ×3 (14:53→17:27)
[2019-12-28] MEDS: ROSUVASTATIN 20 MG TABLET NG SCH (20:11)
[2019-12-29] MEDS: ALBUTEROL/IPRATROPIUM 3 ML NEB RESP TX SCH ×3 (01:40→12:08)
[2019-12-29 04:00] LABS: Basophils % 0.3 % (0.0-0.8); Hematocrit 31.9 VOL% (42.0-52.0); Hemoglobin 9.9 GM/DL (14.0-18.0); Immature Granulocytes % 0.5 %; Immature Granulocytes Absolute 0.02 #; Lymphocytes # 0.1 10*3/uL (1.4-4.0); Lymphocytes % 2.8 % (21.2-54.2); Mean Corpuscular Volume 93.8 FL (87-102); Mean Platelet Volume 11.8 FL (9.6-12.0); Monocytes % 3.9 % (1.7-12.7); Neutrophils % 92.5 % (38.7-73.9); Red Cell Distribution Width 17.5 % (9.3-17.3); White Blood Count 3.9 T/CUMM (4-12)
[2019-12-29 04:12] LABS: Platelet Count 30 T/CUMM (130-400)
[2019-12-29 04:18] LABS: Osmolality,Calculated 302.8 MOS/KG (273-304)
[2019-12-29 04:26] LABS: Calcium 7.6 MG/DL (8.5-10.1); Osmolality,Calculated 302.8 MOS/KG (273-304)
[2019-12-29 04:46] LABS: Band Neutrophils 2 % (0-10); Hypochromasia 1+; Lymphocytes 3 % (20-55); Platelet Estimate Decreased; Segmented Neutrophils 92 % (50-85); Total Cells Counted 100
[2019-12-29 04:47] LABS: Ovalocytes 1+
[2019-12-29] MEDS: INSULIN REGULAR 100 UNIT/ML SUBCUT SCH ×2 (05:48→11:44)
[2019-12-29] MEDS: LEVOTHYROXINE 100 MCG VIAL IV SCH (06:26)
[2019-12-29] MEDS ORDERED: MYLANTA/LIDO VISC 2:1 300 ML BOTTLE SWISH/SPIT PRN (07:50)
[2019-12-29] MEDS: NACL 0.22% IV SCH (07:58)
[2019-12-29] MEDS: DEXTROSE 5% IV SCH (07:58)
[2019-12-29] MEDS: SODIUM ACETATE IV SCH (07:58)
[2019-12-29] MEDS: methylPREDNISolone SOD SUC 125 MG/2 ML VIAL IV SCH (08:54)
[2019-12-29] MEDS: FAMOTIDINE 8 MG/ML 50 ML/BOTTLE PO SCH (08:54)
[2019-12-29] MEDS: CYPROHEPTADINE 4 MG TABLET PO SCH (08:55)
[2019-12-29] MEDS: FERROUS SULFATE 325 MG TABLET PO SCH (08:55)
[2019-12-29] MEDS: POTASSIUM CHLORIDE 20 MEQ/15 ML UDCUP PO SCH (08:55)
[2019-12-29] MEDS: NYSTATIN 500,000 UNIT/5 ML UDCUP SWISH/SWAL SCH ×2 (08:55→13:56)
[2019-12-29] MEDS: METOPROLOL TARTRATE 25 MG TABLET PO SCH (08:55)
[2019-12-29] MEDS: allopurinoL 100 MG TABLET PO SCH (08:55)
[2019-12-29] MEDS: CHLORHEXIDINE 0.12% ORAL RINSE 60 ML BOTTLE SWISH/SPIT SCH (08:56)
[2019-12-29] MEDS ORDERED: POTASSIUM PHOSPHATE 30 MMOL in SODIUM CHLORIDE 0.9% 250 ML IV ONE (10:00)
[2019-12-29 15:58] VITALS: BP 164/88
[2019-12-29] MEDS ORDERED: AMIODARONE 200 MG TABLET PO SCH (21:00)
== END 2019-12-29 14:24 | disposition expired | DRG 216 ==
LOC: EDUNIT# → EDSEX → EDBD → N.ED 23:32 → SUATTDRO 11-28 03:17 → N.EDINP 11-28 03:17 → N.TELES 11-28 04:03 → N.CVR 12-08 13:43 → N.ICU 12-11 08:57 → N.TELES 12-15 13:05 → N.ICU 12-26 14:37
PROVIDERS: ADMIT Hospitalist
PROC: CABGAVR (ICD-10-PCS; 2019-12-08 06:47)
PROC: EGDWPEG (ICD-10-PCS; 2019-12-26 08:35)